=== PATIENT | female | born 1940 | race Caucasian/White ===

== ENCOUNTER 2023-09-25 13:52 | Inpatient (IN) | payer OTHER, SELFPAY ==
[2023-09-25 10:24] VITALS: BP 116/57
--- NOTE | 2023-09-25 10:31 | ED.GENMED ---
History of Present Illness
General
Chief Complaint: Musculo-Skeletal Complaint
Time Seen by Provider: 09/25/23 10:31
Travel History
Have you had any contact with someone who has COVID-19?: No
Do you have any symptoms of coronavirus? Fever > 100 degrees, chills, cough, shortness of breath, sore throat, loss of taste or smell, muscle aches, or headache?: No
History of Present Illness
History of Present Illness:
HPI: The patient came in by private vehicle for evaluation after a fall. The fall occurred at about midnight in the [facility]. She primary complains of pain at the right hip. Her drove her here. She is on Eliquis but adamantly denies
striking her head. She had a small contusion of the right elbow but has no pain at the right elbow.
EXAM:
GENERAL: Well appearing but in mild distress
HEENT: Very dry oral mucosa
CARDIOVASCULAR: No murmurs, normal heart rate with irregular rhythm, No chest wall tenderness
PULMONARY: No respiratory distress, breath sounds are clear and equal
ABDOMEN: Soft with no peritoneal signs, no tenderness
NEUROLOGIC: Excellent strength all extremities, no coordination deficits
PSYCHIATRIC: Appropriate mental status, normal insight and judgement
EXTREMITIES: Markedly decreased active range of motion at the right hip due to pain, there is severe pain with passive range of motion to rotation at the right hip
SKIN: No rash, no lesions
ED COURSE:
10:45 AM: I initially evaluated patient
NUMBER AND COMPLEXITY OF PROBLEMS ADDRESSED AT THE ENCOUNTER
� Chronic conditions affecting care: IDDM, hyperlipidemia, GERD, endometrial cancer, A-fib on Eliquis
� Acute Exacerbation and/or Progression of Chronic Illness: This is an acute problem
� Differential Diagnosis includes: Pelvis fracture, hip fracture, the patient adamantly denies striking her head therefore doubt intracranial hemorrhage
AMOUNT AND/OR COMPLEXITY OF DATA TO BE REVIEWED AND ANALYZED
� I performed an independent evaluation of and my interpretation is:
EKG:
CT: CT imaging confirms femoral neck fracture.
X-rays: I personally viewed x-rays and see signs of a right femoral neck fracture
Laboratory Studies: CBC shows mild anemia but otherwise unremarkable
Other:
� Review of other/old records: I reviewed discharge summary from 2021. The patient had right TKA in 2021 and was also hyponatremic and hypokalemic at that time.
� Clinical information was obtained by an independent historian: None needed
� Prescriptions/Medications Considered but not given:
� Further testing considered but not performed:
RISK OF COMPLICATIONS AND/OR MORBIDITY OR MORTALITY OF PATIENT MANAGEMENT
� Social determinants of health affecting care: Lives at home but injury occurred in the [place]
� Discussion with other providers: I communicated with Dr. Lopez -�will obtain CT imaging for further evaluation. Hospitalist for admission at noon.
� Escalation of care including admission/observation vs risk of discharge considered: Will plan admission to the hospital for hip fracture. Low potassium ordered to be replaced by IV.
Past History
Past History
ED Past Medical History: Arrthythmia (Ventricular tachycardia), Cancer (Endometrial, atrial myxoma), Fibromyalgia, GERD, HTN, Hypercholesterolemia, NIDDM, Psychiatric (Depression, anxiety), Other (DVT in bilateral lower extremities, bilateral lower
extremity lymphedema, pancreatitis) and Other (Pulmonary nodule, rheumatoid arthritis,)
ED Past Surgical History: Cardiac (Atrial myxoma excision), Gynecological (total abdominal hysterectomy) and Orthopedic (Left ankle fusion, left hip fracture status post ORIF, left total knee arthroplasty, right total knee arthroplasty performed
April 2022)
Family History
Family History: Other (reviewed and noncontributory)
Phy Exam
Physical Exam
Physical Exam:
See HPI
Course
Orders/Labs/Results
Orders:
Orders
09/25/23 10:28
Hip, Right 2-3 Views [CR Hip - RT w/wo Pel 2-3 Vw*] Urgent
Comment:
Reason For Exam: fall
Include a pelvis x-ray?: Yes
09/25/23 11:01
CT Pelvis W/o Iv Contrast Urgent
Comment:
Reason For Exam: eval R fem neck fx
09/25/23 11:02
0.9% Sodium Chloride 500 ml [Nss] 500 ml IV BOLUS
09/25/23 11:07
Complete Blood Count/With Diff Urgent
09/25/23 11:13
Morphine Sulfate 2 mg IV NOW STA
Ondansetron Injectable [Zofran] 4 mg IV NOW STA
09/25/23 11:35
CR Femur - Right Min 2 Vw Routine
Comment:
Reason For Exam: Right femoral neck fracture
09/25/23 12:14
Basic Metabolic Panel Urgent
09/25/23 12:38
HYDROmorphone [Dilaudid] 0.5 mg IV NOW STA
09/25/23 12:42
HYDROmorphone [Dilaudid] 0.5 mg IV NOW STA
Abnormal Lab Results
09/25/23 09/25/23
11:07 12:14
RBC 4.08 L 10^6/uL
(4.20-5.40)
Hgb 11.7 L g/dL
(12.0-16.0)
Hct 34.2 L %
(37.0-47.0)
MPV 11.0 H fL
(7.4-10.4)
Abs Immat Gran (auto) 0.1 H 10^3/uL
(0-0.05)
Absolute Lymphs (auto) 0.6 L 10^3/uL
(1.2-3.4)
Immature Gran % 0.8 H %
(0-0.5)
Neutrophils % 82.5 H %
(42.2-75.2)
Lymphocytes % 7.1 L %
(20.5-51.1)
Sodium 134 L mmol/L
(135-145)
Potassium 3.1 L mmol/L
(3.5-5.1)
Creatinine 0.4 L mg/dL
(0.6-1.0)
Glucose 227 H mg/dl
(70-99)
Calcium 8.1 L mg/dl
(8.4-10.2)
09/25/23 11:07
09/25/23 12:14
Vital Signs
Initial and Last Documented VS:
Initial Vital Signs
Temp Pulse Resp BP Pulse Ox
99.1 F 70 16 116/57 98
09/25/23 10:24 09/25/23 10:24 09/25/23 10:24 09/25/23 10:24 09/25/23 10:24
Last Documented Vital Signs
Temp Pulse Resp BP Pulse Ox
99.1 F 64 16 130/71 97
09/25/23 10:24 09/25/23 12:15 09/25/23 12:15 09/25/23 12:15 09/25/23 12:15
*Critical Care Note
Total Time (30-74mins, 75-104mins- exclusive of procedures): Not Applicable
ED Attending Note
-
Portions of this chart may have been created with voice recognition software.� Occasional wrong word or��sound alike� substitutions may have occurred due to the inherent limitations of voice recognition software.
Discharge Plan
Departure
Patient Disposition: Admit
Date of Disposition: 09/25/23
Time of Disposition: 12:38
Presentation/result/management discussed w/ accepting MD/DO: Hospitalist
Discharge Problem:
Closed fracture of neck of right femur
Prescriptions:
No Action
atorvastatin 20 mg Tablet
20 mg PO QPM
insulin glargine [Lantus U-100 Insulin] 100 unit/mL Solution
0 unit SC QPM
Patient Comments:
09/25/2023: Up to [address] First
sertraline 100 mg Tablet
100 mg PO DAILY
omeprazole 20 mg Capsule,Delayed Release(Dr/Ec)
20 mg PO DAILY
metoprolol succinate 25 mg Tablet Extended Release 24 Hr
25 mg PO QPM
insulin aspart U-100 [Novolog FlexPen U-100 Insulin] 100 unit/mL (3 mL) Insulin Pen
0 sliding scale dose SC AC
Creon 36,000-114,000- 180,000 unit Capsule,Delayed Release(Dr/Ec)
1 cap PO BID
multivitamin Tablet
1 tab PO DAILY
cholecalciferol (vitamin D3) [Vitamin D3] 125 mcg (5,000 unit) Tablet
125 mcg PO DAILY
Probiotic 3 billion cell Capsule
3,000 mmu cells PO DAILY
Rx Instructions:
administer with a meal
PreserVision AREDS-2 250-90-40-1 mg Capsule
1 tab PO BID
Eliquis 5 mg Tablet
5 mg PO BID 30 Days Qty: 60 0RF
alendronate 70 mg tablet
70 mg PO WEEKLY
prednisone 5 mg tablet
15 mg PO DAILY
hydroxychloroquine 200 mg tablet
200 mg PO BID
Referrals:
César Varghese DO [Family Provider] -
Interventions
Interventions:
*Risk Screen - Suicide Last Done: 09/25/23 10:24
*General Assessment Last Done: 09/25/23 10:24
*Neglect/Abuse Screening Last Done: 09/25/23 10:24
ED-Musculoskeletal Assessment Last Done: 09/25/23 11:08
[2023-09-25 11:07] VITALS: BMI 23.9
[2023-09-25] MEDS: NSS 500 IV (11:17)
[2023-09-25] MEDS: MORPHINE SULFATE 2 MG IV (11:20)
[2023-09-25] MEDS: ZOFRAN 4 MG IV (11:21)
[2023-09-25 11:24] LABS: % Basophils 0.4 % (0-2); % Eosinophils 1.7 % (0-6); % Immature Granulocytes 0.8 % (0-0.5); % Lymphocytes 7.1 % (20.5-51.1); % Monocytes 7.5 % (1.7-9.3); % Neutrophils 82.5 % (42.2-75.2); Absolute Eosinophils 0.1 10^3/uL (0-0.7); Absolute Immature Granulocytes 0.1 10^3/uL (0-0.05); Absolute Lymphocytes 0.6 10^3/uL (1.2-3.4); Absolute Monocytes 0.6 10^3/uL (0.1-0.6); Absolute Neutrophils 6.4 10^3/uL (1.4-6.5); Hematocrit 34.2 % (37.0-47.0); Hemoglobin 11.7 g/dL (12.0-16.0); Mean Corp Hgb Conc. 34.2 g/dL (33.0-37.0); Mean Corpuscular Hgb 28.7 pg (27.0-31.0); Mean Corpuscular Volume 83.8 fL (81.0-99.0); Nucleated Red Blood Cells % 0 %; Platelet Count 151 10^3/uL (130-400); Red Blood Cell Count 4.08 10^6/uL (4.20-5.40); Red Cell Dist. Width 13.5 % (11.5-14.5); White Blood Cell Count 7.8 10^3/uL (4.8-10.8)
[2023-09-25 12:15] VITALS: BP 130/71
[2023-09-25 12:40] LABS: Blood Urea Nitrogen 12 mg/dl (7-17); Calcium 8.1 mg/dl (8.4-10.2); Carbon Dioxide 25 mmol/L (22-30); Chloride 105 mmol/L (98-107); Estimated Creatinine Clearance 57 ml/min; Glucose 227 mg/dl (70-99); Potassium 3.1 mmol/L (3.5-5.1); Sodium 134 mmol/L (135-145); eGFR > 60.00
[2023-09-25] MEDS: DILAUDID 0.5 MG IV (12:46)
--- NOTE | 2023-09-25 13:32 | PHANOTE ---
Med Rec Note:
Insulins left unconfirmed due to unknown dosages. At time of interview it was hard to get information from of pt due to pt receiving Dilaudid, pt was rambling.
--- NOTE | 2023-09-25 13:37 | HPS.HSE ---
Addendum entered and electronically signed by Omid Gamboa MD 09/25/23 16:08:
83-year-old female with past medical history of atrial myxoma status post resection, paroxysmal atrial fibrillation on Eliquis, hypertension, hyperlipidemia, and diabetes presents with right hip pain status post fall. Patient reports that she
slipped, and fell at her friend's house after midnight. She was found to have impacted fracture of the femoral neck into the head of the proximal right femur.
Consult orthopedic surgery, pain control, laxatives.
Hold Eliquis, last dose was 09/25/2023 at 7 AM.
Patient's perioperative risk is low, she can proceed to surgery if indicated by orthopedic surgery.
I have personally seen and examined the patient, and agree with the plan of care as documented by Corine Salazar NP.
Advance care planning discussed, patient is a full code.
All other issues as outlined by the advanced care practitioner.
Original Note:
Family Physician
-
Family Physician: César Varghese
Chief Complaint
-
s/p fall, R femur fx
History of Present Illness
83 year old female came to the ED today after a mechanical fall.� The fall occurred at about midnight in the [facility].� She primary complains of pain at the right hip and states she fell because the floor was slippery.� She is on Eliquis, last dose
taken this morning. She denies hitting her head, denies LOC.� X-ray and CT confirm right femur fracture. She is a patient of Dr. Null and will plan to do surgery on Wednesday after Eliquis washout.
Medical History
Past Medical History
Past Medical History: Reports Arrhythmia, Cancer, Fibromyalgia, GERD, HTN, Hypercholesterolemia, IDDM, Psychiatric (Depression) and Other (DVT in bilateral lower extremities, bilateral lower extremity lymphedema, pancreatitis)
Past Surgical History: Reports Cardiac (Atrial myxoma excision), Gynocological (total abdominal hysterectomy) and Orthopedic (Left ankle fusion, left hip fracture status post ORIF, left total knee arthroplasty, right total knee arthroplasty
performed April 2022)
Social History
Tobacco: Non-smoker
Alcohol: None
Drug: None
Living: With Family
Family History
Family History: Not pertinent
Allergies / Home Medications
Allergies reflects when Allergies were last updated in [facility].
Home Medications with original date entered in [facility]
Allergy/Medication List:
Allergies
Allergy/AdvReac Type Severity Reaction Status Date / Time
No Known Allergies Allergy Verified 09/25/23 10:24
Home Medications
atorvastatin 20 mg tablet 20 mg PO QPM High cholesterol 04/02/22
cholecalciferol (vitamin D3) 125 mcg (5,000 unit) tablet (Vitamin D3) 125 mcg PO DAILY Supplement 04/02/22
insulin aspart U-100 100 unit/mL (3 mL) subcutaneous pen (Novolog FlexPen U-100 Insulin aspart) 0 sliding scale dose SC AC Diabetes 04/02/22
insulin glargine 100 unit/mL subcutaneous solution (Lantus U-100 Insulin) 0 unit SC QPM Diabetes 04/02/22
lactobacillus combination no.4 3 billion cell capsule (Probiotic) 3,000 mmu cells PO DAILY Gastrointestinal issue 04/02/22
lcoiqf-emoeohjy-etfqovu 36,000-114,000-180,000 unit capsule,delay rel (Creon) 1 cap PO BID Gastrointestinal issue 04/02/22
metoprolol succinate 25 mg tablet,extended release 24 hr 25 mg PO QPM Blood pressure 04/02/22
multivitamin 1 tab PO DAILY Supplement 04/02/22
omeprazole 20 mg capsule,delayed release 20 mg PO DAILY Gastrointestinal issue 04/02/22
sertraline 100 mg tablet 100 mg PO DAILY Mental Health 04/02/22
vit C 250 mg-vit E 90 mg-zinc 40 mg-copper 1 nx-asklhp-aszrcl capsule (PreserVision AREDS-2) 1 tab PO BID Supplement 04/02/22
apixaban 5 mg tablet (Eliquis) 5 mg PO BID 30 days #60 tabs 05/06/22
alendronate 70 mg tablet 70 mg PO WEEKLY 09/25/23
hydroxychloroquine 200 mg tablet 200 mg PO BID 09/25/23
prednisone 5 mg tablet 15 mg PO DAILY 09/25/23
Review of Systems
-
History Source: Patient
A 12 point ROS was completed and negative except as noted: Yes
Constitutional: Reports No Symptoms
EENT: Reports No Symptoms
Respiratory: Reports No Symptoms
Cardiac: Reports No Symptoms
Abdomen/GI: Reports No Symptoms
: Reports No Symptoms
Musculoskeletal: Reports Edema (b/l LE) and Other (R hip pain)
Skin: Reports No Symptoms
Neurological: Reports No Symptoms
Endocrine: Reports No Symptoms
Hematologic/Lymphatic: Reports No Symptoms
Physical Exam
Vital Signs
Vital Signs
Temp Pulse Resp BP Pulse Ox
99.1 F 64 16 130/71 97
09/25/23 10:24 09/25/23 12:15 09/25/23 12:15 09/25/23 12:15 09/25/23 12:15
Physical Exam
General: Well Developed and Comfortable
HEENT: NormoCephalic, Anicteric and Moist mucous membranes
Respiratory: Clear
Cardiac: Irregular Rhythm
Breast: Deferred by me
GI: Soft, Non Tender, Non Distended and Normal Bowel Sounds
Genito-urinary: Deferred by me
Musculoskeletal: Edema, Left Lower Extremity and Edema, Right Lower Extremity
Skin: Warm and Dry
Neuro: Awake, Alert, Oriented and AO x 3
Psych: Calm
Laboratory Results
-
09/25/23 11:07
09/25/23 12:14
Impression/Plan
-
IMPRESSION/PLAN:
Admit to telemetry under Hospitalist service
#Closed fracture of neck of right femur
#Pain
#s/p mechanical fall
-X-ray and CT show impacted fracture of the neck extending into the head of the proximal left femur
-Ortho consult, sees Dr. Null, plan for surgery on Wednesday after Eliquis washout
-Tylenol and oxycodone for pain
-PT/OT consult after surgery
#Afib
-Hold Eliquis for now while awaiting surgery
-SQH
-Telemetry
-Continue metoprolol
#Essential Hypertension
-Continue metoprolol
#HLD
-Continue Atorvastatin
#Hypokalemia
-Replete potassium and recheck BMP with am labs
-check Magnesium
#IDDM
-SSI
#Anxiety/Depression
-Continue Sertraline
Full Code
DVT Prophylaxis: SQH
[2023-09-25 14:06] LABS: Magnesium 1.6 mg/dl (1.6-2.3)
[2023-09-25] MEDS: KCL 40 MEQ PO (14:17)
[2023-09-25] MEDS: TYLENOL 1000 MG PO ×2 (14:17→22:54)
--- NOTE | 2023-09-25 14:21 | EDRN ---
PO Potassium given. Pharmacy aware of K+ IV gtt order.
[2023-09-25] MEDS: KCL 270 MEQ IV (14:39)
[2023-09-25 15:08] VITALS: BP 116/72; BMI 24.3
--- NOTE | 2023-09-25 15:31 | PTCARENOTE ---
Pt received from ER at 1500. Pt AAOx3 with R hip fracture, complaining of 3/10 pain to hip. Pt A paced on monitor, dim @ bases on RA. VSS. see worklist
[2023-09-25 16:46] LABS: Glucose - Point of Care 148 mg/dl (70-99)
[2023-09-25] MEDS: NOVOLOG FLEXPEN-LOW RESISTANCE SC (16:46)
[2023-09-25] MEDS: TOPROL XL 25 MG PO (17:12)
[2023-09-25] MEDS: LIPITOR 20 MG PO (17:12)
[2023-09-25 19:40] VITALS: BP 115/64
[2023-09-25] MEDS: OCUVITE SOFTGEL 1 CAP PO (21:10)
[2023-09-25] MEDS: HEPARIN 5000 UNITS SC (21:10)
[2023-09-25] MEDS: PLAQUENIL 200 MG PO (21:10)
[2023-09-25] MEDS: ZENPEP DELAYED RELEASE CAPSULE 1 CAPSULE PO (21:10)
[2023-09-25] MEDS: ROXICODONE 10 MG PO (21:10)
[2023-09-25 21:52] LABS: Glucose - Point of Care 223 mg/dl (70-99)
[2023-09-25 23:51] VITALS: BP 123/59
[2023-09-26] MEDS: ROXICODONE 5 MG PO ×2 (00:24→22:14)
[2023-09-26 03:48] VITALS: BP 135/66
[2023-09-26] MEDS: ROXICODONE 10 MG PO (06:33)
[2023-09-26 06:58] LABS: Glucose - Point of Care 141 mg/dl (70-99)
[2023-09-26 07:00] VITALS: BP 116/52
[2023-09-26 07:21] LABS: Hematocrit 38.3 % (37.0-47.0); Hemoglobin 12.7 g/dL (12.0-16.0); Mean Corp Hgb Conc. 33.2 g/dL (33.0-37.0); Mean Corpuscular Hgb 28.9 pg (27.0-31.0); Mean Corpuscular Volume 87.2 fL (81.0-99.0); Mean Platelet Volume 10.7 fL (7.4-10.4); Platelet Count 113 10^3/uL (130-400); Red Blood Cell Count 4.39 10^6/uL (4.20-5.40); Red Cell Dist. Width 13.7 % (11.5-14.5); White Blood Cell Count 5.6 10^3/uL (4.8-10.8)
[2023-09-26 08:08] LABS: Blood Urea Nitrogen 5 mg/dl (7-17); Calcium 7.9 mg/dl (8.4-10.2); Carbon Dioxide 30 mmol/L (22-30); Chloride 105 mmol/L (98-107); Estimated Creatinine Clearance 57 ml/min; Glucose 108 mg/dl (70-99); Magnesium 1.7 mg/dl (1.6-2.3); Potassium 4.2 mmol/L (3.5-5.1); Sodium 133 mmol/L (135-145); eGFR > 60.00
[2023-09-26] MEDS: NOVOLOG FLEXPEN-LOW RESISTANCE SC (08:21)
[2023-09-26 08:33] LABS: Glycohemoglobin (HgbA1c) 11.2 % (4.0-5.6)
--- NOTE | 2023-09-26 08:43 | W.PN.HOSP.TC ---
Today's Communication/Plan
-
see bold
Assessment / Plan
Assessment / Plan
83-year-old female with past medical history of atrial myxoma status post resection, paroxysmal atrial fibrillation on Eliquis, hypertension, hyperlipidemia, and diabetes presents with right hip pain status post fall.� Patient reports that she
slipped, and fell at her friend's house after midnight.� She was found to have impacted fracture of the femoral neck into the head of the proximal right femur.
#Closed impacted fracture of right femoral neck
#Mechanical fall
Sees Dr. Null
Appreciate orthopedic surgery input, plan for surgery on Wednesday after Eliquis washout (last dose 7am on 09/25)
Tylenol and oxycodone for pain, bowel regimen
PT/OT consult after surgery
#Fever
Patient febrile with temp of 100.4
No leukocytosis
Check lower extremity Dopplers to evaluate for DVT
Check chest x-ray, urine analysis, influenza/COVID, blood cultures x 2
#Uncontrolled type 2 diabetes
Patient does not know her insulin dosages
Hemoglobin A1c uncontrolled at 11.2, she admits to not being compliant with diet
Start NovoLog 4 units AC 3 times daily, Lantus 10 units at bedtime
Sliding scale insulin, diabetic diet
# Paroxysmal atrial fibrillation
Holding Eliquis for surgery
Continue metoprolol
#Hypokalemia
Repleted and resolved, Mg normal
#Rheumatoid arthritis
Continue hydroxychloroquine, prednisone 50 mg daily
#HLD
Continue Atorvastatin
#Anxiety/Depression
Continue Sertraline
DVT prophylaxis�subcu heparin (hold 2/7 am for surg)
Full code
Total time spent to see the patient on the floor, examine the patient, review data and lab results, discuss treatment plan with patient, nursing staff around 51 minutes.
Physical Exam
General: Frail, elderly, no acute distress
HEENT: Normocephalic, Atraumatic, EOMI, MMM
Respiratory: Clear to Auscultation bilaterally
Cardiac: Normal S1/S2, Regular Rate and Rhythm
GI: Soft, Nontender, Nondistended, Normal Bowel Sounds
Musculoskeletal: Right leg mildly shortened and externally rotated
Anticipated Discharge: > 48 hours
Subjective/Interval History
-
Date of Service: September 26, 2023
Right hip pain controlled.
Objective Data
-
Labs:
Laboratory Results
09/26/23
06:45
WBC 5.6
Hgb 12.7
Hct 38.3
Plt Count 113 L D
Sodium 133 L
Potassium 4.2 D
Chloride 105
Carbon Dioxide 30
BUN 5 L
Creatinine 0.4 L
Glucose 108 H
Calcium 7.9 L
Vital Signs:
Vital Signs
Temp Pulse Resp BP Pulse Ox
98.8 F 61 16 116/52 94
09/26/23 07:00 09/26/23 07:00 09/26/23 07:00 09/26/23 07:00 09/26/23 07:00
I&O
09/25/23 09/26/23 09/27/23
06:59 06:59 06:59
Intake Total 1200 / 1200
Output Total 700 / 700
Balance 500 / 500
--- NOTE | 2023-09-26 09:47 | CON.ORTHO ---
Consultation
-
Date/Time Consultation Requested: 09/25/2023; time unknown
Date/Time Consultation Performed: 09/26/2023; 0730
Requesting Provider: unknown
Performing Provider: Dr. Hafsa Lopez / Jo Ann Florez PA-C
Reason for Consultation: Right femoral neck fracture
Consultation - Orthopedics
History
Ms. Marrero is an 83 year old female with PMH of atrial myxoma status post resection, paroxysmal atrial fibrillation on Eliquis, hypertension, hyperlipidemia, and diabetes. She reports she got up in the middle of the night yesterday to use the
bathroom and fell onto her right side. She experienced immediate onset of pain in the hip, but was able to get up with the assistance of her . She was visiting a friend in the [facility], and when her symptoms did not improve, her drove
her directly to [facility]. X-rays and CT scan confirmed right femoral neck fracture. She is resting comfortably in bed this morning, and states her pain is well controlled at present. She does report ongoing pain in her right hip for the
last few months.
She lives independently with her . She ambulates with the assistance of a cane or walker at baseline. She denies PMH of DVT, CVA or UT. She has a history of bilateral knee replacements performed by Dr. Null.
Allergies / Home Medications
Allergy/AdvReac Type Severity Reaction Status Date / Time
No Known Allergies Allergy Verified 09/25/23 10:24
Medication Instructions Recorded
atorvastatin 20 mg tablet 20 mg PO QPM High cholesterol 04/02/22
cholecalciferol (vitamin D3) 125 125 mcg PO DAILY Supplement 04/02/22
mcg (5,000 unit) tablet (Vitamin
D3)
insulin aspart U-100 100 unit/mL 0 sliding scale dose SC AC Diabetes 04/02/22
(3 mL) subcutaneous pen (Novolog
FlexPen U-100 Insulin aspart)
insulin glargine 100 unit/mL 0 unit SC QPM Diabetes 04/02/22
subcutaneous solution (Lantus
U-100 Insulin)
lactobacillus combination no.4 3 3,000 mmu cells PO DAILY 04/02/22
billion cell capsule (Probiotic) Gastrointestinal issue
rzzsep-ipqzqwkm-xhrywav 1 cap PO BID Gastrointestinal issue 04/02/22
36,000-114,000-180,000 unit
capsule,delay rel (Creon)
metoprolol succinate 25 mg 25 mg PO QPM Blood pressure 04/02/22
tablet,extended release 24 hr
multivitamin 1 tab PO DAILY Supplement 04/02/22
omeprazole 20 mg capsule,delayed 20 mg PO DAILY Gastrointestinal 04/02/22
release issue
sertraline 100 mg tablet 100 mg PO DAILY Mental Health 04/02/22
vit C 250 mg-vit E 90 mg-zinc 40 1 tab PO BID Supplement 04/02/22
mg-copper 1 cr-hwadgd-eqrtzb
capsule (PreserVision AREDS-2)
apixaban 5 mg tablet (Eliquis) 5 mg PO BID 30 days #60 tabs 05/06/22
alendronate 70 mg tablet 70 mg PO WEEKLY 09/25/23
hydroxychloroquine 200 mg tablet 200 mg PO BID 09/25/23
prednisone 5 mg tablet 15 mg PO DAILY 09/25/23
Vital Signs / Lab Results
Temp Pulse Resp BP Pulse Ox
98.8 F 61 16 116/52 94
09/26/23 07:00 09/26/23 07:00 09/26/23 07:00 09/26/23 07:00 09/26/23 07:00
09/26/23 06:45
09/26/23 06:45
CR Right Hip 09/25/2023 IMPRESSION:
Findings suspicious for fracture, neck, proximal right femur.
Old healed fracture of the proximal left femur with internal metallic fixation.
CR Femur 09/25/2023 IMPRESSION:
Known fracture, neck, proximal right femur.
No additional right femoral fracture seen.
Right knee arthroplasty.
CT Pelvis 09/25/2023 IMPRESSION:
Impacted fracture of the neck extending into the head of the proximal left femur.
Old healed fracture with internal metallic fixation of the proximal left femur.
Physical Exam:
General: Pleasant female in no acute distress, alert and oriented x 3
Head: Atraumatic, normocephalic
Eyes: Sclera anicteric
Ears: Normal hearing
Heart: No edema
Lungs: Normal work of breathing, no audible wheezing
Right lower extremity: No signs of erythema, ecchymosis or edema about the right hip. Very mild tenderness to palpation about the anterior hip. Only mild tenderness with logroll. Range of motion deferred secondary to known fracture. Thigh soft
and compressible. Calf soft and nontender. Patient able to wiggle toes, plantar and dorsiflex ankle. Neurovascular intact distally.
Assessment / Plan
Right femoral neck fracture
--Unfortunately, Lala sustained a right femoral neck fracture in her fall. We recommend proceeding with surgical intervention of her fracture. The risks, benefits, alternatives, recovery process and potential complications were discussed in
detail. Patient would like to proceed with surgery. Surgical and blood consents are signed and in the patient's chart. We will plan to proceed with right hip hemiarthroplasty versus total hip arthroplasty under the direction of Dr. Null on
Wednesday (09/29/2023) after Eliquis washout.
--NWB to RLE until surgery.
--NPO after midnight 09/29/2023 for OR.
--Continue current pain management regimen. Ice and elevation for edema control.
--T+S within 72 hours of surgery.
--Irrigation and antibiotics ordered to OR.
--Orthopedics will continue to follow along.
[2023-09-26] MEDS: TYLENOL 1000 MG PO ×3 (09:54→22:15)
[2023-09-26] MEDS: ZENPEP DELAYED RELEASE CAPSULE 1 CAPSULE PO ×2 (09:54→20:08)
[2023-09-26] MEDS: DELTASONE 15 MG PO (09:54)
[2023-09-26] MEDS: MIRALAX 17 GRAMS PO (09:54)
[2023-09-26] MEDS: PLAQUENIL 200 MG PO ×2 (09:54→20:08)
[2023-09-26] MEDS: OCUVITE SOFTGEL 1 CAP PO ×2 (09:54→20:08)
[2023-09-26] MEDS: ZOLOFT 100 MG PO (09:54)
[2023-09-26] MEDS: HEPARIN 5000 UNITS SC ×2 (09:55→20:08)
--- NOTE | 2023-09-26 10:26 | W.PN.UPDATE ---
Update Note
Progress Note Update
Patient seen and examined. Agree with orthopedic PA note.
Upon further questioning of patient. She did say she was having approximately 2 months of hip pain prior to her fall 2 days ago. She we are waiting for her Eliquis to washout. She is comfortable laying in the bed with only mild discomfort with
range of motion of the hip with log roll.
Right lower extremity: Mild tenderness with logroll and range of motion. Patient is comfortable in her bed. Complete active range of motion of the ankle. Neurovascularly intact.
X-rays performed of the right femur AP and lateral and AP of the pelvis and AP and lateral of right hip show a displaced right femoral neck fracture. CT scan of the pelvis shows minimally displaced and significantly impacted right femoral neck
fracture. Unknown chronicity
Impression: Right femoral neck fracture
Plan: Nonoperative and operative approaches of this were discussed. I read commend operative fixation of this fracture. However, with the impaction, mild displacement, and question as to chronicity, I recommend right hip hemiarthroplasty for
definitive treatment of this fracture. Unfortunately, cannulated screw fixation for this fracture may likely lead to nonunion, continued pain, and/or leg length discrepancy that she may not be able to tolerate moving forward. Her history suggests
that she may have had a stress fracture that Made her leg give way creating that fall as she was vacationing in [facility]. We are waiting the Eliquis to washout. She Is scheduled to have her surgery performed by Dr. Loaiza on Wednesday. She is to
be n.p.o. past midnight on Wednesday night. She is to be on bedrest. All questions were answered.
[2023-09-26 11:15] VITALS: BP 118/60
--- NOTE | 2023-09-26 12:16 | CM ---
Spoke with patient and daughter bedside.
DX fx hip
Patient lives with spouse in a rancher style home, no steps
patient independent prior to admission.
Patient has WC and cane in the home from prior knee/hip sx.
Patient had vn in the past, maybe [facility].
Patient was in the [facility] before and would like referral there.
Additional options list provided to daughter.
Referral [email or web address].
patient for OR later week.
PT/OT pending post op.
Patient will require insurance auth.
PCP: Dr Varghese
Pharmacy: [facility]
Plan: Skilled rehab when medically stable.
[2023-09-26 12:47] LABS: Glucose - Point of Care 228 mg/dl (70-99)
[2023-09-26] MEDS: NOVOLOG FLEXPEN-LOW RESISTANCE 2 UNITS SC (13:48)
[2023-09-26 15:36] VITALS: BP 118/55
[2023-09-26 16:40] LABS: Glucose - Point of Care 401 mg/dl (70-99)
[2023-09-26 16:41] LABS: Glucose - Point of Care 417 mg/dl (70-99)
[2023-09-26 16:53] LABS: COVID-19 Antigen Negative (Negative)
[2023-09-26] MEDS: LIPITOR 20 MG PO (16:59)
[2023-09-26 17:45] LABS: Glucose 376 mg/dl (70-99)
[2023-09-26] MEDS: NOVOLOG FLEXPEN 4 UNITS SC (17:56)
[2023-09-26] MEDS: NOVOLOG FLEXPEN-LOW RESISTANCE 5 UNITS SC (17:57)
[2023-09-26] MEDS: TOPROL XL 25 MG PO (17:58)
[2023-09-26 19:13] VITALS: BP 121/64
[2023-09-26 22:07] LABS: Glucose - Point of Care 384 mg/dl (70-99)
[2023-09-26] MEDS: LANTUS 0.100000000000000006 UNITS SC (22:15)
[2023-09-26 22:50] LABS: Urine Albumin Negative (Neg - Trace); Urine Bilirubin Negative (Negative); Urine Character Slightly Cloudy (Clear); Urine Color Yellow; Urine Glucose 3+ (Negative); Urine Ketone 1+ (Negative); Urine Leukocyte Negative (Negative); Urine Nitrite Negative (Negative); Urine Occult Blood Negative (Negative); Urine Specific Gravity 1.015 (<1.030); Urine Urobilinogen Negative (Neg - 1+)
[2023-09-26 23:59] VITALS: BP 131/60
--- NOTE | 2023-09-27 02:17 | PTCARENOTE ---
Patient was given a laxative has moved her bowels 4 times since 1899.
[2023-09-27 03:33] VITALS: BP 125/62
[2023-09-27 07:33] LABS: Glucose - Point of Care 317 mg/dl (70-99)
[2023-09-27 07:55] VITALS: BP 145/67
[2023-09-27] MEDS: TYLENOL 1000 MG PO ×3 (08:03→21:47)
[2023-09-27] MEDS: MIRALAX 17 GRAMS PO (08:03)
[2023-09-27] MEDS: HEPARIN 5000 UNITS SC ×2 (08:04→20:12)
[2023-09-27] MEDS: ZOLOFT 100 MG PO (08:04)
[2023-09-27] MEDS: DELTASONE 15 MG PO (08:04)
[2023-09-27] MEDS: PLAQUENIL 200 MG PO ×2 (08:04→20:12)
[2023-09-27] MEDS: ZENPEP DELAYED RELEASE CAPSULE 1 CAPSULE PO ×2 (08:05→20:14)
[2023-09-27] MEDS: OCUVITE SOFTGEL 1 CAP PO ×2 (08:05→20:12)
[2023-09-27] MEDS: NOVOLOG FLEXPEN-LOW RESISTANCE 4 UNITS SC ×2 (08:06→18:03)
[2023-09-27] MEDS: NOVOLOG FLEXPEN 4 UNITS SC ×3 (08:06→18:03)
[2023-09-27 08:09] LABS: Mean Corp Hgb Conc. 33.3 g/dL (33.0-37.0); Mean Corpuscular Hgb 28.7 pg (27.0-31.0); Mean Corpuscular Volume 86.2 fL (81.0-99.0); Mean Platelet Volume 10.8 fL (7.4-10.4); Platelet Count 117 10^3/uL (130-400); Red Blood Cell Count 3.83 10^6/uL (4.20-5.40); Red Cell Dist. Width 13.7 % (11.5-14.5); White Blood Cell Count 6.3 10^3/uL (4.8-10.8)
[2023-09-27 08:41] LABS: Blood Urea Nitrogen 10 mg/dl (7-17); Calcium 7.7 mg/dl (8.4-10.2); Carbon Dioxide 30 mmol/L (22-30); Chloride 99 mmol/L (98-107); Estimated Creatinine Clearance 57 ml/min; Glucose 267 mg/dl (70-99); Potassium 3.7 mmol/L (3.5-5.1); Sodium 134 mmol/L (135-145); eGFR > 60.00
--- NOTE | 2023-09-27 09:09 | W.PN.UPDATE ---
Update Note
Progress Note Update
Patient comfortable in bed. Afeb. We continue to await Elisarbjit gross. plan for OR is Wednesday via Dr. Null. T&S placed. Remainder of orders in. Patient to be NPO pMN tomorrow PM. Remain bedrest for now. Will follow
--- NOTE | 2023-09-27 11:09 | W.PN.HOSP.TC ---
Today's Communication/Plan
-
At this point seems to be doing better she is now afebrile x 24 hours hope that continues
Basilar pneumonic infiltrate questionable/will defer antibiotic unless procalcitonin significant elevated
May be either viral versus reactive fever
Exam benign
Will clear officially tomorrow for presumptive right hip hemiarthroplasty for impacted hip fracture
Assessment / Plan
Assessment / Plan
83-year-old female with past medical history of atrial myxoma status post resection, paroxysmal atrial fibrillation on Eliquis, hypertension, hyperlipidemia, and diabetes presents with right hip pain status post fall.� Patient reports that she
slipped, and fell at her friend's house after midnight.� She was found to have impacted fracture of the femoral neck into the head of the proximal right femur.
#Closed impacted fracture of right femoral neck
#Mechanical fall
Sees Dr. Null
Appreciate orthopedic surgery input, plan for surgery on Wednesday after Eliquis washout (last dose 7am on 09/25)
Tylenol and oxycodone for pain, bowel regimen
PT/OT consult after surgery
#Fever
Patient febrile with temp of 100.4/no afebrile x 24 hours
-Chest x-ray did show questionable basilar infiltrate right/
-Will check procalcitonin today if normal would not place on antibiotic
No leukocytosis
Check lower extremity Dopplers to evaluate for DVT was negative for thrombus
, urine analysis no signs of infection, influenza/COVID both negative, blood cultures x 2(no growth to date)
#Uncontrolled type 2 diabetes
Patient does not know her insulin dosages
Hemoglobin A1c uncontrolled at 11.2, she admits to not being compliant with diet
Start NovoLog 4 units AC 3 times daily, Lantus 10 units at bedtime
Sliding scale insulin, diabetic diet
# Paroxysmal atrial fibrillation
Holding Eliquis for surgery
Continue metoprolol
#Hypokalemia
Repleted and resolved, Mg normal
#Rheumatoid arthritis
Continue hydroxychloroquine, prednisone 50 mg daily
#HLD
Continue Atorvastatin
#Anxiety/Depression
Continue Sertraline
DVT prophylaxis�subcu heparin (hold 2/7 am for surg)
Full code
Total time spent to see the patient on the floor, examine the patient, review data and lab results, discuss treatment plan with patient, nursing staff around 51 minutes.
Physical Exam
General: Frail, elderly, no acute distress
HEENT: Normocephalic, Atraumatic, EOMI, MMM
Respiratory: Clear to Auscultation bilaterally
Cardiac: Normal S1/S2, Regular Rate and Rhythm
GI: Soft, Nontender, Nondistended, Normal Bowel Sounds
Musculoskeletal: Right leg mildly shortened and externally rotated
Anticipated Discharge: 24 - 48 hours
Subjective/Interval History
-
Date of Service: September 27, 2023
Only some minor upper respiratory congestion mild nonproductive cough last several days denies shortness of breath
Persisting pain referred to the hip and groin
Objective Data
-
Labs:
Laboratory Results
09/27/23
07:14
WBC 6.3
Hgb 11.0 L
Hct 33.0 L
Plt Count 117 L
Sodium 134 L
Potassium 3.7
Chloride 99
Carbon Dioxide 30
BUN 10
Creatinine 0.4 L
Glucose 267 H
Calcium 7.7 L
Vital Signs:
Vital Signs
Temp Pulse Resp BP Pulse Ox
98.4 F 70 16 145/67 95
09/27/23 07:55 09/27/23 07:55 09/27/23 07:55 09/27/23 07:55 09/27/23 07:55
I&O
09/26/23 09/27/23 09/28/23
06:59 06:59 06:59
Intake Total 1200 / 1200 1140 / 1140
Output Total 700 / 700 1500 / 1500
Balance 500 / 500 -360 / -360
Review of Systems
-
History Source: Patient
All other systems: Reviewed and negative
Constitutional: Reports No Symptoms
EENT: Reports No Symptoms Reported
Respiratory: Reports No Symptoms
Cardiac: Reports No Symptoms
Abdomen/GI: Reports No Symptoms
Skin: Reports No Symptoms
Physical Exam
-
General: Well Developed
HEENT: Normocephalic
Respiratory: Clear to Auscultation
Cardiac: Regular Rhythm (Paced) and Other (Pacer pocket left)
Genito-urinary: No Costovertebral Tender
Musculoskeletal: No Clubbing
Psych: Calm
Data Reviewed
-
Total Time Spent with Patient (in minutes): 45
Diagnostic Radiology: Report Reviewed by me (Chest x-ray showed mild hazy basilar infiltrate)
Labs: Labs Reviewed by me (No leukocytosis/urinalysis unremarkable/COVID and influenza negative/)
[2023-09-27 11:47] LABS: Glucose - Point of Care 160 mg/dl (70-99)
[2023-09-27 11:55] VITALS: BP 101/49
[2023-09-27 12:50] LABS: Procalcitonin < 0.05 ng/ml (0.0-0.25)
[2023-09-27] MEDS: NOVOLOG FLEXPEN-LOW RESISTANCE 1 UNITS SC (13:25)
[2023-09-27 15:55] VITALS: BP 120/53
--- NOTE | 2023-09-27 16:44 | CM ---
Possible surgery tomorrow, watch for SNF need; pending functional assessments follow surgery. Patient family asked about [facility] if needed. CM will continue to follow for discharge planning needs.
Plan; SNF vs home with VN; watch for pt/ot recommendations follow surgery
[2023-09-27 16:49] LABS: Glucose - Point of Care 413 mg/dl (70-99)
[2023-09-27 17:36] LABS: Glucose 341 mg/dl (70-99)
[2023-09-27] MEDS: LIPITOR 20 MG PO (18:04)
[2023-09-27] MEDS: TOPROL XL 25 MG PO (18:04)
[2023-09-27 19:28] VITALS: BP 130/65
[2023-09-27 21:44] LABS: Glucose - Point of Care 309 mg/dl (70-99)
[2023-09-27] MEDS: LANTUS 0.149999999999999994 UNITS SC (21:47)
[2023-09-27 23:00] VITALS: BP 128/63
--- NOTE | 2023-09-28 05:52 | W.PN.UPDATE ---
Update Note
Progress Note Update
Patient seen and evaluated by orthopedic surgery this morning. Patient is resting comfortably in bed, in no acute distress. Afebrile. We will continue to await Gia gross. Plan for OR Wednesday09/29/2023 under the direction of Dr. Null as
long as medically cleared. T&S completed. Pre-operative orders placed. Consent form in patient's chart. Patient to be NPO pMN tonight. Remain bedrest for now. Orthopedic surgery will continue to follow.
[2023-09-28 07:30] VITALS: BP 108/73
[2023-09-28 07:39] LABS: Glucose - Point of Care 106 mg/dl (70-99)
[2023-09-28 07:59] LABS: Hematocrit 34.2 % (37.0-47.0); Hemoglobin 11.3 g/dL (12.0-16.0); Mean Corpuscular Hgb 28.5 pg (27.0-31.0); Mean Corpuscular Volume 86.4 fL (81.0-99.0); Platelet Count 146 10^3/uL (130-400); Red Blood Cell Count 3.96 10^6/uL (4.20-5.40); Red Cell Dist. Width 13.6 % (11.5-14.5); White Blood Cell Count 6.2 10^3/uL (4.8-10.8)
[2023-09-28] MEDS: NOVOLOG FLEXPEN-MODERATE RESISTANCE SC (08:10)
[2023-09-28] MEDS: NOVOLOG FLEXPEN 6 UNITS SC ×3 (08:33→18:20)
[2023-09-28] MEDS: DELTASONE 15 MG PO (08:34)
[2023-09-28] MEDS: MIRALAX 17 GRAMS PO (08:34)
[2023-09-28] MEDS: PLAQUENIL 200 MG PO ×2 (08:34→19:47)
[2023-09-28] MEDS: TYLENOL 1000 MG PO ×3 (08:34→21:36)
[2023-09-28] MEDS: OCUVITE SOFTGEL 1 CAP PO ×2 (08:35→19:47)
[2023-09-28] MEDS: ZOLOFT 100 MG PO (08:37)
[2023-09-28] MEDS: ZENPEP DELAYED RELEASE CAPSULE 1 CAPSULE PO ×2 (08:37→19:50)
[2023-09-28] MEDS: HEPARIN 5000 UNITS SC ×2 (08:37→19:48)
[2023-09-28 08:41] LABS: Blood Urea Nitrogen 10 mg/dl (7-17); Calcium 7.5 mg/dl (8.4-10.2); Carbon Dioxide 29 mmol/L (22-30); Chloride 105 mmol/L (98-107); Estimated Creatinine Clearance 57 ml/min; Glucose 129 mg/dl (70-99); Potassium 3.3 mmol/L (3.5-5.1); Sodium 136 mmol/L (135-145); eGFR > 60.00
--- NOTE | 2023-09-28 10:20 | W.PN.HOSP.TC ---
Addendum entered and electronically signed by Ck Boucher MD 09/28/23 14:05:
Hyponatremia considered insignificant as in relation to pseudohyponatremia from her continued elevated blood sugars
Because of fall and fracture underlying osteoporosis may have contributed to her fracture
Original Note:
Today's Communication/Plan
-
Appears stable for proposed hemiarthroplasty of right hip tomorrow
Based on the Fritz perioperative noncardiac risk assessment she has a an estimated risk of probability of perioperative CA or cardiac arrest of 0.42%/very low risk
Continue to monitor blood sugars
Fever has resolved
Treat upper respiratory congestion with Mucinex
Assessment / Plan
Assessment / Plan
83-year-old female with past medical history of atrial myxoma status post resection, paroxysmal atrial fibrillation on Eliquis, hypertension, hyperlipidemia, and diabetes presents with right hip pain status post fall.� Patient reports that she
slipped, and fell at her friend's house after midnight.� She was found to have impacted fracture of the femoral neck into the head of the proximal right femur.
#Closed impacted fracture of right femoral neck
#Mechanical fall
Sees Dr. Null
Appreciate orthopedic surgery input, plan for surgery on Wednesday after Eliquis washout (last dose 7am on 09/25)
Tylenol and oxycodone for pain, bowel regimen
PT/OT consult after surgery
-Based on the Fritz perioperative noncardiac risk assessment she has a an estimated risk of probability of perioperative CA or cardiac arrest of 0.42%/very low risk
#Fever/now resolved
Patient febrile with temp of 100.4/no afebrile x 24 hours
-Chest x-ray did show questionable basilar infiltrate right/
-Will check procalcitonin today if normal would not place on antibiotic
No leukocytosis
Check lower extremity Dopplers to evaluate for DVT was negative for thrombus
, urine analysis no signs of infection, influenza/COVID both negative, blood cultures x 2(no growth to date)
#Uncontrolled type 2 diabetes/in relation to also concomitant low-dose steroid usage for RA
Patient does not know her insulin dosages
Hemoglobin A1c uncontrolled at 11.2, she admits to not being compliant with diet
Start NovoLog 4 units AC 3 times daily, Lantus 15 units at bedtime
Sliding scale insulin, diabetic diet
-In the postop setting we will discontinue her low-dose prednisone is only contributing to her hyperglycemia
# Paroxysmal atrial fibrillation
Holding Eliquis for surgery
Continue metoprolol
#Hypokalemia
Repleted and resolved, Mg normal
#Rheumatoid arthritis
Continue hydroxychloroquine, prednisone 15 mg daily
#HLD
Continue Atorvastatin
#Anxiety/Depression
Continue Sertraline
DVT prophylaxis�subcu heparin (hold 2/7 am for surg)
Full code
Total time spent to see the patient on the floor, examine the patient, review data and lab results, discuss treatment plan with patient, nursing staff around 51 minutes.
Physical Exam
General: Frail, elderly, no acute distress
HEENT: Normocephalic, Atraumatic, EOMI, MMM
Respiratory: Clear to Auscultation bilaterally
Cardiac: Normal S1/S2, Regular Rate and Rhythm
GI: Soft, Nontender, Nondistended, Normal Bowel Sounds
Musculoskeletal: Right leg mildly shortened and externally rotated
Anticipated Discharge: Within 24 hours
Subjective/Interval History
-
Date of Service: September 28, 2023
In good spirits denies any complaints other than some mild upper respiratory congestion in her throat states blood sugars have been persistently elevated ever since her rn ed put her on low-dose prednisone which did not help her arthritis
which she wants to stop.
Objective Data
-
Labs:
Laboratory Results
09/28/23
06:17
WBC 6.2
Hgb 11.3 L
Hct 34.2 L
Plt Count 146 D
Sodium 136
Potassium 3.3 L
Chloride 105
Carbon Dioxide 29
BUN 10
Creatinine 0.5 L
Glucose 129 H
Calcium 7.5 L
Vital Signs:
Vital Signs
Temp Pulse Resp BP Pulse Ox
98.0 F 66 20 108/73 98
09/28/23 07:30 09/28/23 07:30 09/28/23 07:30 09/28/23 07:30 09/28/23 07:30
I&O
09/27/23 09/28/23 09/29/23
06:59 06:59 06:59
Intake Total 1140 / 1140 1380 / 1380
Output Total 1500 / 1500 1050 / 1050
Balance -360 / -360 330 / 330
Review of Systems
-
History Source: Patient
EENT: Reports No Symptoms Reported
Respiratory: Reports No Symptoms
Cardiac: Reports No Symptoms
Abdomen/GI: Reports No Symptoms
Physical Exam
-
General: Well Developed
HEENT: Normocephalic
Respiratory: Clear to Auscultation
Cardiac: Regular Rhythm and Other (Pacer pocket)
GI: Soft
Musculoskeletal: Edema, Right Lower Extrem
Skin: Warm
Neuro: Awake, Alert and Oriented
Data Reviewed
-
Total Time Spent with Patient (in minutes): 56
Medical Tests (Nuc Med, Echo etc): Report Reviewed by me and Discussed with Patient
Labs: Labs Reviewed by me (Potassium 3.3/sugars elevated in the afternoon yesterday/okay this morning)
[2023-09-28] MEDS: KCL 20 MEQ PO (11:33)
[2023-09-28 11:40] VITALS: BP 135/85
[2023-09-28 12:09] LABS: Glucose - Point of Care 172 mg/dl (70-99)
[2023-09-28] MEDS: NOVOLOG FLEXPEN-MODERATE RESISTANCE 1 UNITS SC (13:26)
--- NOTE | 2023-09-28 13:32 | PN.CDI ---
CDI
- -
CDI:
Physician Documentation Request
Admit Date: 09/25/23 13:52
Dear Doctor Citlaly,
Patient admitted with closed impacted fracture of right femoral neck.
Na levels documented below:
Patient received IV NSS.
Laboratory Tests
09/25/23 09/26/23 09/27/23
12:14 06:45 07:14
Sodium 134 L 133 L 134 L
Based on the above, could you clarify in the progress notes, the appropriate diagnosis, if significant, that supports the above abnormalities and additional evaluation, monitoring and/or treatment rendered:
Hyponatremia
Insignificant abnormal lab finding
Other
Unable to determine
Use of terms such as suspected, likely, concern for, or probable (associated with a specific diagnosis that is being evaluated, monitored, or treated as if it exists) are acceptable and can be coded in the inpatient setting, when documented at the
time of discharge.
Thank you,
Hafsa EWING,RN,CCDS
CDI Specialist
Available via [place] text
Please use your independent medical judgment in providing your response.
--- NOTE | 2023-09-28 13:47 | PN.CDI ---
CDI
- -
CDI:
Physician Documentation Request
Admit Date: 09/25/23 13:52
Dear Doctor Citlaly,
Patient admitted with closed impacted fracture of right femoral neck.
2/6 PN, 'Patient reports that she slipped, and fell at her friend's house after midnight.'�
/ Hip x-ray, 'Diffuse osteopenia is noted.'
Home medications include Alendronate for osteoporosis and Vitamin D3.
Please provide the etiology/ etiologies of right femoral neck fracture:
Multifactorial due to low level fall and osteoporosis
Low level fall only
Other
Use of terms such as suspected, likely, concern for, or probable (associated with a specific diagnosis that is being evaluated, monitored, or treated as if it exists) are acceptable and can be coded in the inpatient setting, when documented at the
time of discharge.
Thank you,
Hafsa EWING,RN,CCDS
CDI Specialist
Available via [place] text
Please use your independent medical judgment in providing your response.
--- NOTE | 2023-09-28 14:28 | CM ---
Chart reviewed and patient is for possible OR tomorrow, case sealer will follow with PT/OT, patient will need new orders for PT/OT to assist with discharge planning.
Plan; Await PT/OT evaluations for discharge planning needs.
[2023-09-28 16:00] VITALS: BP 105/64
[2023-09-28 16:59] LABS: Glucose - Point of Care 238 mg/dl (70-99)
[2023-09-28] MEDS: TOPROL XL 25 MG PO (17:35)
[2023-09-28] MEDS: LIPITOR 20 MG PO (17:35)
[2023-09-28] MEDS: NOVOLOG FLEXPEN-MODERATE RESISTANCE 3 UNITS SC (18:21)
[2023-09-28] MEDS: BENTYL 10 MG PO (18:21)
[2023-09-28 19:30] VITALS: BP 106/55
[2023-09-28 21:29] LABS: Glucose - Point of Care 289 mg/dl (70-99)
[2023-09-28] MEDS: LANTUS 0.149999999999999994 UNITS SC (21:37)
[2023-09-28 23:40] VITALS: BP 123/60
[2023-09-29] VITALS (13 sets, daily range): BP systolic 102–137; BP diastolic 49–67; PULSE 61–82; O2SAT 99–100
[2023-09-29 06:04] LABS: Glucose - Point of Care 90 mg/dl (70-99)
--- NOTE | 2023-09-29 07:42 | W.PN.UPDATE ---
Update Note
Progress Note Update
Ms. Marrero is resting comfortably in bed this morning. She reports she is doing well, and denies any pain in the hip at present. She has no questions or concerns at this time.
Directed exam of the RLE reveals ecchymosis about the lateral hip. No tenderness to palpation about the hip. Thigh soft and compressible. Calf soft and nontender. Patient able to wiggle toes, plantar and dorsiflex ankle. NVID.
Hgb pending this AM. VSS.
Plan to proceed with right total hip arthroplasty today under the direction of Dr. Null. NWB to RLE until surgery. NPO until surgery. Consents signed and in patient's chart. Pre-operative orders placed.
[2023-09-29 07:46] LABS: Hematocrit 34.9 % (37.0-47.0); Hemoglobin 11.6 g/dL (12.0-16.0); Mean Corp Hgb Conc. 33.2 g/dL (33.0-37.0); Mean Corpuscular Hgb 28.6 pg (27.0-31.0); Mean Corpuscular Volume 86.2 fL (81.0-99.0); Mean Platelet Volume 10.7 fL (7.4-10.4); Platelet Count 162 10^3/uL (130-400); Red Blood Cell Count 4.05 10^6/uL (4.20-5.40); White Blood Cell Count 5.8 10^3/uL (4.8-10.8)
[2023-09-29 08:11] LABS: Blood Urea Nitrogen 16 mg/dl (7-17); Calcium 7.7 mg/dl (8.4-10.2); Carbon Dioxide 29 mmol/L (22-30); Chloride 103 mmol/L (98-107); Estimated Creatinine Clearance 57 ml/min; Glucose 65 mg/dl (70-99); Potassium 3.1 mmol/L (3.5-5.1); Sodium 138 mmol/L (135-145); eGFR > 60.00
[2023-09-29] MEDS: NOVOLOG FLEXPEN SC ×2 (08:49→16:48)
[2023-09-29] MEDS: DELTASONE 15 MG PO (08:56)
[2023-09-29] MEDS: ZOLOFT 100 MG PO (08:56)
[2023-09-29] MEDS: ZENPEP DELAYED RELEASE CAPSULE 1 CAPSULE PO ×2 (08:56→20:51)
[2023-09-29] MEDS: TYLENOL 1000 MG PO (08:56)
[2023-09-29] MEDS: PLAQUENIL 200 MG PO ×2 (08:57→20:51)
[2023-09-29] MEDS: HEPARIN SC (08:57)
[2023-09-29] MEDS: OCUVITE SOFTGEL 1 CAP PO ×2 (08:57→20:51)
[2023-09-29] MEDS: MIRALAX PO (08:57)
--- NOTE | 2023-09-29 10:20 | W.PN.HOSP.TC ---
Today's Communication/Plan
-
Replete potassium today prior to surgery/ avoid any postop Dilaudid for pain relief as has caused delirium in the past.
Based on the Fritz perioperative noncardiac risk assessment she has a an estimated risk of probability of perioperative NM or cardiac arrest of 0.42%/ low risk
Check chemistries and CBC in a.m. DVT prophylaxis to resume on Eliquis once cleared by surgery
Assessment / Plan
Assessment / Plan
83-year-old female with past medical history of atrial myxoma status post resection, paroxysmal atrial fibrillation on Eliquis, hypertension, hyperlipidemia, and diabetes presents with right hip pain status post fall.� Patient reports that she
slipped, and fell at her friend's house after midnight.� She was found to have impacted fracture of the femoral neck into the head of the proximal right femur.
#Closed impacted fracture of right femoral neck
#Mechanical fall
Sees Dr. Null
Appreciate orthopedic surgery input, plan for surgery on Wednesday after Eliquis washout (last dose 7am on 09/25)
Tylenol and oxycodone for pain, bowel regimen
PT/OT consult after surgery
-Based on the Fritz perioperative noncardiac risk assessment she has a an estimated risk of probability of perioperative NM or cardiac arrest of 0.42%/ low risk
-Will document adverse reaction to hydromorphone as a possible cause of delirium from previous joint surgery and this will be avoided.
#Fever/now resolved
Patient febrile with temp of 100.4/no afebrile x 24 hours
-Chest x-ray did show questionable basilar infiltrate right/
-Will check procalcitonin today if normal would not place on antibiotic
No leukocytosis
Check lower extremity Dopplers to evaluate for DVT was negative for thrombus
, urine analysis no signs of infection, influenza/COVID both negative, blood cultures x 2(no growth to date)
#Uncontrolled type 2 diabetes/in relation to also concomitant low-dose steroid usage for RA
Patient does not know her insulin dosages
Hemoglobin A1c uncontrolled at 11.2, she admits to not being compliant with diet
Start NovoLog 4 units AC 3 times daily, Lantus 15 units at bedtime
Sliding scale insulin, diabetic diet
-In the postop setting we will discontinue her low-dose prednisone is only contributing to her hyperglycemia
# Paroxysmal atrial fibrillation
Holding Eliquis for surgery
Continue metoprolol
#Hypokalemia
Repleted and resolved, Mg normal
#Rheumatoid arthritis
Continue hydroxychloroquine, prednisone 15 mg daily
#HLD
Continue Atorvastatin
#Anxiety/Depression
Continue Sertraline
DVT prophylaxis�subcu heparin (hold 2/7 am for surg)
Full code
Total time spent to see the patient on the floor, examine the patient, review data and lab results, discuss treatment plan with patient, nursing staff around 51 minutes.
Physical Exam
General: Frail, elderly, no acute distress
HEENT: Normocephalic, Atraumatic, EOMI, MMM
Respiratory: Clear to Auscultation bilaterally
Cardiac: Normal S1/S2, Regular Rate and Rhythm
GI: Soft, Nontender, Nondistended, Normal Bowel Sounds
Musculoskeletal: Right leg mildly shortened and externally rotated
Anticipated Discharge: 24 - 48 hours
Subjective/Interval History
-
Date of Service: September 29, 2023
No new issues or complaints overnight/she is quite concerned over the fact that on her last joint surgery she had an episode of acute delirium and suspects were in relation to either anesthesia or Dilaudid she received afterwards I assured her I
would document this/also daughter at bedside and both concerned that they have not had a chance to speak to orthopedics over the specifics of what is being done later today and surgery.
Objective Data
-
Labs:
Laboratory Results
09/29/23
06:25
WBC 5.8
Hgb 11.6 L
Hct 34.9 L
Plt Count 162
Sodium 138
Potassium 3.1 L
Chloride 103
Carbon Dioxide 29
BUN 16
Creatinine 0.4 L
Glucose 65 L
Calcium 7.7 L
Vital Signs:
Vital Signs
Temp Pulse Resp BP Pulse Ox
97.3 F 67 18 137/60 98
09/29/23 07:00 09/29/23 07:00 09/29/23 07:00 09/29/23 07:00 09/29/23 07:00
I&O
09/28/23 09/29/23 09/30/23
06:59 06:59 06:59
Intake Total 1380 / 1380 1080 / 1080
Output Total 1050 / 1050 1025 / 1025
Balance 330 / 330 55 / 55
Review of Systems
-
History Source: Patient and Family
Constitutional: Reports No Symptoms
Respiratory: Reports No Symptoms
Cardiac: Reports No Symptoms
Abdomen/GI: Reports No Symptoms
Physical Exam
-
General: Well Developed
HEENT: Normocephalic
Respiratory: Clear to Auscultation
Cardiac: Irregular Rhythm and Other (Pacer)
GI: Soft and Nontender
Skin: Warm
Neuro: Awake, Alert, Oriented and AO x 3
Data Reviewed
-
Total Time Spent with Patient (in minutes): 45
Labs: Labs Reviewed by me (Potassium down to 3.2)
[2023-09-29] MEDS: KCL 160 MEQ IV (10:23)
[2023-09-29 13:39] LABS: Glucose - Point of Care 133 mg/dl (70-99)
[2023-09-29] MEDS: NSS 1000 IV (14:15)
[2023-09-29 14:16] LABS: Glucose - Point of Care 113 mg/dl (70-99)
[2023-09-29] MEDS: MORPHINE SULFATE 1 MG IV ×2 (14:34→14:54)
[2023-09-29] MEDS: ROXICODONE 10 MG PO ×2 (15:31→22:47)
[2023-09-29 16:52] LABS: Glucose - Point of Care 172 mg/dl (70-99)
[2023-09-29] MEDS: TYLENOL 650 MG PO ×2 (16:56→20:51)
[2023-09-29] MEDS: LIPITOR 20 MG PO (17:01)
[2023-09-29] MEDS: TOPROL XL PO (17:03)
[2023-09-29] MEDS: NOVOLOG FLEXPEN 6 UNITS SC (17:34)
[2023-09-29] MEDS: BACTROBAN 2% OINTMENT 1 APPLIC NASAL (20:50)
[2023-09-29] MEDS: COLACE 100 MG PO (20:50)
[2023-09-29] MEDS: ELIQUIS 2.5 MG PO (20:51)
[2023-09-29] MEDS: SENOKOT 17.1999999999999993 MG PO (20:51)
[2023-09-29 21:39] LABS: Glucose - Point of Care 215 mg/dl (70-99)
[2023-09-29] MEDS: LANTUS 0.149999999999999994 UNITS SC (22:09)
[2023-09-29] MEDS: ANCEF 5 IV (22:10)
[2023-09-30] VITALS (7 sets, daily range): BP systolic 101–130; BP diastolic 57–71; PULSE 56–81; O2SAT 97–98
[2023-09-30] MEDS: TYLENOL 650 MG PO ×5 (00:30→21:16)
[2023-09-30] MEDS: TYLENOL PO (05:00)
[2023-09-30] MEDS: ANCEF 5 IV (05:35)
[2023-09-30 06:13] LABS: Hematocrit 33.9 % (37.0-47.0); Hemoglobin 11.1 g/dL (12.0-16.0); Mean Corp Hgb Conc. 32.7 g/dL (33.0-37.0); Mean Corpuscular Hgb 28.6 pg (27.0-31.0); Mean Corpuscular Volume 87.4 fL (81.0-99.0); Mean Platelet Volume 10.5 fL (7.4-10.4); Platelet Count 192 10^3/uL (130-400); Red Blood Cell Count 3.88 10^6/uL (4.20-5.40); Red Cell Dist. Width 14.4 % (11.5-14.5); White Blood Cell Count 11.3 10^3/uL (4.8-10.8)
[2023-09-30] MEDS: ROXICODONE 10 MG PO ×3 (06:41→16:27)
[2023-09-30 06:42] LABS: Blood Urea Nitrogen 18 mg/dl (7-17); Calcium 6.9 mg/dl (8.4-10.2); Carbon Dioxide 24 mmol/L (22-30); Chloride 102 mmol/L (98-107); Estimated Creatinine Clearance 57 ml/min; Glucose 189 mg/dl (70-99); Potassium 3.9 mmol/L (3.5-5.1); Sodium 131 mmol/L (135-145); eGFR > 60.00
--- NOTE | 2023-09-30 06:55 | W.PN.UPDATE ---
Update Note
Progress Note Update
RN notified FURNITURE SPRAYER of low Calcium 6.9, no recent albumin to treat corrected calcium, will add albumin to morning lab, Also will add Oscal daily
--- NOTE | 2023-09-30 07:09 | W.PN.HOSP.TC ---
Today's Communication/Plan
-
Monitor hemodynamics and electrolytes
Replete calcium
Potassium improved from yesterday
Hyponatremia this morning
Recheck in a.m.
Reduce prednisone to 7.5
Reduce Eliquis to 2.5 twice daily based on age and weight
Assessment / Plan
Assessment / Plan
83-year-old female with past medical history of atrial myxoma status post resection, paroxysmal atrial fibrillation on Eliquis, hypertension, hyperlipidemia, and diabetes presents with right hip pain status post fall.� Patient reports that she
slipped, and fell at her friend's house after midnight.� She was found to have impacted fracture of the femoral neck into the head of the proximal right femur.
#Closed impacted fracture of right femoral neck/now post right total hip arthroplasty
#Mechanical fal
-Activity postop as per surgical recommendations
Tylenol and oxycodone for pain, bowel regimen
PT/OT consult after surgery
-Based on the Fritz perioperative noncardiac risk assessment she has a an estimated risk of probability of perioperative DE or cardiac arrest of 0.42%/ low risk
-Will document adverse reaction to hydromorphone as a possible cause of delirium from previous joint surgery and this will be avoided.
#Fever/now resolved
Patient febrile with temp of 100.4/no afebrile x 24 hours
-Chest x-ray did show questionable basilar infiltrate right/
-Will check procalcitonin today if normal would not place on antibiotic
No leukocytosis
Check lower extremity Dopplers to evaluate for DVT was negative for thrombus
, urine analysis no signs of infection, influenza/COVID both negative, blood cultures x 2(no growth to date)
#Uncontrolled type 2 diabetes/in relation to also concomitant low-dose steroid usage for RA
Patient does not know her insulin dosages
Hemoglobin A1c uncontrolled at 11.2, she admits to not being compliant with diet
Start NovoLog 4 units AC 3 times daily, Lantus 15 units at bedtime
Sliding scale insulin, diabetic diet
-In the postop setting we will discontinue her low-dose prednisone is only contributing to her hyperglycemia
-With continued hyperglycemia and lack of effect per patient of 50 mg dosage of prednisone will reduce to 7.5
# Paroxysmal atrial fibrillation
Holding Eliquis for surgery/postop placed on dosage of 2.5 mg twice daily based on weight and age
Continue metoprolol
#Hypokalemia
Repleted and resolved, Mg normal
#Rheumatoid arthritis
Continue hydroxychloroquine, prednisone 15 mg daily>> 7.5
#HLD
Continue Atorvastatin
#Anxiety/Depression
Continue Sertraline
DVT prophylaxis�subcu heparin (hold 2/7 am for surg)
Full code
Total time spent to see the patient on the floor, examine the patient, review data and lab results, discuss treatment plan with patient, nursing staff around 51 minutes.
Physical Exam
General: Frail, elderly, no acute distress
HEENT: Normocephalic, Atraumatic, EOMI, MMM
Respiratory: Clear to Auscultation bilaterally
Cardiac: Normal S1/S2, Regular Rate and Rhythm
GI: Soft, Nontender, Nondistended, Normal Bowel Sounds
Musculoskeletal: Right leg mildly shortened and externally rotated
Anticipated Discharge: 24 - 48 hours
Subjective/Interval History
-
Date of Service: September 30, 2023
Patient having pain issues waiting to see how oxycodone does for her. If she had also a difficult time with the spinal yesterday that she remembers. She denies any chest pain any shortness of breath looks a little pale.
Objective Data
-
Labs:
Laboratory Results
09/30/23 09/30/23
05:29 05:30
WBC 11.3 H
Hgb 11.1 L
Hct 33.9 L
Plt Count 192
Sodium 131 L
Potassium 3.9 D
Chloride 102
Carbon Dioxide 24
BUN 18 H
Creatinine 0.5 L
Glucose 189 H
Calcium 6.9 L*
Vital Signs:
Vital Signs
Temp Pulse Resp BP Pulse Ox
98.1 F 71 16 119/59 98
09/30/23 03:35 09/30/23 03:35 09/30/23 03:35 09/30/23 03:35 09/30/23 03:35
I&O
09/29/23 09/30/23 10/01/23
06:59 06:59 06:59
Intake Total 1080 / 1080 1945
Output Total 1025 / 1025
Balance 55 / 55 1945
Review of Systems
-
History Source: Patient
All other systems: Reviewed and negative
EENT: Reports No Symptoms Reported
Cardiac: Reports No Symptoms
Abdomen/GI: Reports No Symptoms
Genitourinary: Reports No Symptoms
Neuro: Reports No Symptoms; Denies Dizzy
Allergy / Immunology: Reports No Symptoms
Physical Exam
-
General: Well Developed
HEENT: Normocephalic
Respiratory: Clear to Auscultation
Cardiac: Regular Rhythm
GI: Soft
Musculoskeletal: Edema, Right Lower Extrem and Edema, Left Lower Extrem
Skin: Warm
Neuro: Awake
Psych: Calm
Data Reviewed
-
Total Time Spent with Patient (in minutes): 56
Labs: Labs Reviewed by me (White count up to 11.3 hemoglobin 11.1 and stable/calcium depressed at 6.9)
[2023-09-30 07:31] LABS: Albumin 2.6 g/dl (3.5-5.0)
--- NOTE | 2023-09-30 07:35 | W.PN.ORTHO ---
Today's Communication / Plan
-
PT/OT
Mechanical devices/Eliquis for DVT prophylaxis
Weightbearing as tolerated
Hip precautions
Return to office 2 weeks for skin clip removal
Assessment
.
Distal Motor Intact: Yes
Dressing:
Clean, dry and intact.
Plan
.
Surgery / Date: 09/29 [place]
DVT Prophylaxis: Other (Eliquis)
Activity:
Out of bed.
PT/OT
Discharge Plan: SNF
Subjective
.
.:
Patient resting comfortably.
Vital Signs and Labs
.
Vital Signs and Labs:
Lab Results
09/30/23 05:30
09/30/23 05:29
Temp Pulse Resp BP Pulse Ox
98.1 F 71 16 119/59 98
09/30/23 03:35 09/30/23 03:35 09/30/23 03:35 09/30/23 03:35 09/30/23 03:35
Non-invasive Hgb result: 11.1
[2023-09-30 07:52] LABS: Glucose - Point of Care 187 mg/dl (70-99)
[2023-09-30] MEDS: ELIQUIS 2.5 MG PO ×2 (08:56→21:15)
[2023-09-30] MEDS: OCUVITE SOFTGEL 1 CAP PO ×2 (08:56→21:14)
[2023-09-30] MEDS: DELTASONE 7.5 MG PO (08:56)
[2023-09-30] MEDS: PLAQUENIL 200 MG PO ×2 (08:56→21:17)
[2023-09-30] MEDS: ZENPEP DELAYED RELEASE CAPSULE 1 CAPSULE PO ×2 (08:56→21:15)
[2023-09-30] MEDS: COLACE 100 MG PO ×2 (08:56→21:15)
[2023-09-30] MEDS: OSCAL 500 + D 500 MG PO (08:56)
[2023-09-30] MEDS: SENOKOT 17.1999999999999993 MG PO ×2 (08:57→21:14)
[2023-09-30] MEDS: NOVOLOG FLEXPEN 6 UNITS SC ×3 (08:57→17:43)
[2023-09-30] MEDS: ZOLOFT 100 MG PO (08:57)
[2023-09-30] MEDS: MIRALAX 17 GRAMS PO (08:57)
[2023-09-30] MEDS: CALCIUM GLUCONATE 100 IV (08:58)
[2023-09-30] MEDS: NOVOLOG FLEXPEN-MODERATE RESISTANCE 1 UNITS SC (08:58)
[2023-09-30] MEDS: BACTROBAN 2% OINTMENT 1 APPLIC NASAL ×2 (09:00→21:29)
[2023-09-30 12:31] LABS: Glucose - Point of Care 274 mg/dl (70-99)
[2023-09-30] MEDS: NOVOLOG FLEXPEN-MODERATE RESISTANCE 5 UNITS SC ×2 (13:18→17:43)
--- NOTE | 2023-09-30 13:43 | CM ---
Addendum entered by Jackson Yates 09/30/23 13:50:
[facility] is [facility]. Referral has already been forwarded and patient accepted pending bed availability.
Original Note:
PT has recommended SNF for fci and rehab. Medicare [employer] list given to patient requesting 6 preferences. First preference is [facility]. Referral will be sent. Spoke with [id number], Jo Ann Kemp, who was visiting
and CM reiterated request for additional preferences in the event [facility] is not able to accept. Expressed understanding.
[2023-09-30 16:23] LABS: Glucose - Point of Care 448 mg/dl (70-99)
[2023-09-30 17:01] LABS: Glucose 280 mg/dl (70-99)
[2023-09-30] MEDS: LIPITOR 20 MG PO (17:41)
[2023-09-30] MEDS: TOPROL XL 25 MG PO (17:41)
[2023-09-30] MEDS: MELATONIN 5 MG PO (21:16)
[2023-09-30 21:23] LABS: Glucose - Point of Care 237 mg/dl (70-99)
[2023-09-30] MEDS: LANTUS 0.149999999999999994 UNITS SC (21:29)
[2023-10-01] MEDS: TYLENOL PO ×2 (01:16→05:24)
[2023-10-01] MEDS: ROXICODONE 10 MG PO (03:25)
[2023-10-01 03:40] VITALS: BP 134/60
[2023-10-01 06:17] LABS: Hematocrit 26.6 % (37.0-47.0); Mean Corp Hgb Conc. 33.1 g/dL (33.0-37.0); Mean Corpuscular Hgb 29.2 pg (27.0-31.0); Mean Corpuscular Volume 88.4 fL (81.0-99.0); Mean Platelet Volume 10.6 fL (7.4-10.4); Platelet Count 129 10^3/uL (130-400); Red Blood Cell Count 3.01 10^6/uL (4.20-5.40); Red Cell Dist. Width 14.2 % (11.5-14.5); White Blood Cell Count 5.8 10^3/uL (4.8-10.8)
[2023-10-01 06:19] LABS: Hemoglobin 8.8 g/dL (12.0-16.0)
--- NOTE | 2023-10-01 06:27 | PTCARENOTE ---
hgb 11.1 yesterday and 8.8 today. cardiology technician notfied. no new orders. will monitor.
[2023-10-01 06:28] LABS: Blood Urea Nitrogen 17 mg/dl (7-17); Calcium 7.8 mg/dl (8.4-10.2); Carbon Dioxide 29 mmol/L (22-30); Chloride 101 mmol/L (98-107); Estimated Creatinine Clearance 57 ml/min; Glucose 167 mg/dl (70-99); Sodium 134 mmol/L (135-145); eGFR > 60.00
[2023-10-01 07:41] LABS: Glucose - Point of Care 158 mg/dl (70-99)
[2023-10-01 07:51] VITALS: BP 111/60
--- NOTE | 2023-10-01 07:55 | W.PN.HOSP.TC ---
Today's Communication/Plan
-
Medically stable for discharge to rehab
Hemodynamically stable
Has been resumed on Eliquis 2.5 twice daily
Would continue her lower dosage of prednisone at 7.5 and then further taper while at rehab
We can reduce her insulin maintenance accordingly at discharge
Assessment / Plan
Assessment / Plan
83-year-old female with past medical history of atrial myxoma status post resection, paroxysmal atrial fibrillation on Eliquis, hypertension, hyperlipidemia, and diabetes presents with right hip pain status post fall.� Patient reports that she
slipped, and fell at her friend's house after midnight.� She was found to have impacted fracture of the femoral neck into the head of the proximal right femur.
#Closed impacted fracture of right femoral neck/now post right total hip arthroplasty
#Mechanical fal
-Activity postop as per surgical recommendations
Tylenol and oxycodone for pain, bowel regimen
PT/OT consult after surgery
-Based on the Fritz perioperative noncardiac risk assessment she has a an estimated risk of probability of perioperative PA or cardiac arrest of 0.42%/ low risk
-Will document adverse reaction to hydromorphone as a possible cause of delirium from previous joint surgery and this will be avoided.
#Fever/now resolved
Patient febrile with temp of 100.4/no afebrile x 24 hours
-Chest x-ray did show questionable basilar infiltrate right/
-Will check procalcitonin today if normal would not place on antibiotic
No leukocytosis
Check lower extremity Dopplers to evaluate for DVT was negative for thrombus
, urine analysis no signs of infection, influenza/COVID both negative, blood cultures x 2(no growth to date)
#Uncontrolled type 2 diabetes/in relation to also concomitant low-dose steroid usage for RA
Patient does not know her insulin dosages
Hemoglobin A1c uncontrolled at 11.2, she admits to not being compliant with diet
Start NovoLog 4 units AC 3 times daily, Lantus 15 units at bedtime
Sliding scale insulin, diabetic diet
-In the postop setting we will taper her low-dose prednisone is only contributing to her hyperglycemia
-With continued hyperglycemia and lack of effect per patient of 15 mg dosage of prednisone will reduce to 7.5
# Paroxysmal atrial fibrillation
Holding Eliquis for surgery/postop placed on dosage of 2.5 mg twice daily based on weight and age
Continue metoprolol
#Hypokalemia
Repleted and resolved, Mg normal
#Rheumatoid arthritis
Continue hydroxychloroquine, prednisone 15 mg daily>> 7.5
#HLD
Continue Atorvastatin
#Anxiety/Depression
Continue Sertraline
DVT prophylaxis�subcu heparin (hold 2/7 am for surg)
Full code
Total time spent to see the patient on the floor, examine the patient, review data and lab results, discuss treatment plan with patient, nursing staff around 51 minutes.
Physical Exam
General: Frail, elderly, no acute distress
HEENT: Normocephalic, Atraumatic, EOMI, MMM
Respiratory: Clear to Auscultation bilaterally
Cardiac: Normal S1/S2, Regular Rate and Rhythm
GI: Soft, Nontender, Nondistended, Normal Bowel Sounds
Musculoskeletal: Right leg mildly shortened and externally rotated
Anticipated Discharge: Today
Subjective/Interval History
-
Date of Service: October 01, 2023
Some degree of discomfort when she moves around the bed had some improvement with PT yesterday but still not independent and will require SNF
Objective Data
-
Labs:
Laboratory Results
10/01/23
04:48
WBC 5.8
Hgb 8.8 L D
Hct 26.6 L
Plt Count 129 L D
Sodium 134 L
Potassium 4.0
Chloride 101
Carbon Dioxide 29
BUN 17
Creatinine 0.5 L
Glucose 167 H
Calcium 7.8 L
Vital Signs:
Vital Signs
Temp Pulse Resp BP Pulse Ox
98.4 F 63 16 111/60 95
10/01/23 07:51 10/01/23 07:51 10/01/23 07:51 10/01/23 07:51 10/01/23 07:51
I&O
09/30/23 10/01/23 10/02/23
06:59 06:59 06:59
Intake Total 1945 700 / 700
Balance 1945 700 / 700
Review of Systems
-
History Source: Patient and Family
Constitutional: Reports Weakness
EENT: Reports No Symptoms Reported
Respiratory: Reports No Symptoms
Cardiac: Reports No Symptoms
Abdomen/GI: Reports No Symptoms
Musculoskeletal: Reports Joint Swelling, Muscle Pain and Myalgias
Physical Exam
-
General: Well Developed
HEENT: Normocephalic
Respiratory: Clear to Auscultation
Cardiac: Regular Rhythm
GI: Soft
Genito-urinary: No Costovertebral Tender
Skin: Warm
Neuro: Awake, Alert and Oriented
Psych: Calm
Data Reviewed
-
Total Time Spent with Patient (in minutes): 56
Labs: Labs Reviewed by me (Hemoglobin down to 8.8/sodium improved to 134/calcium improved to 7.8/renal status stable)
[2023-10-01] MEDS: ELIQUIS 2.5 MG PO ×2 (08:12→20:19)
[2023-10-01] MEDS: OSCAL 500 + D 500 MG PO (08:12)
[2023-10-01] MEDS: COLACE 100 MG PO ×2 (08:12→20:19)
[2023-10-01] MEDS: MIRALAX 17 GRAMS PO (08:12)
[2023-10-01] MEDS: ZOLOFT 100 MG PO (08:12)
[2023-10-01] MEDS: TYLENOL 650 MG PO ×4 (08:12→20:19)
--- NOTE | 2023-10-01 08:12 | W.DS.TRANS ---
DC Summary - [employer] Consultant
-
Discharge Instructions:
Discharge Diagnosis/Procedures Status post right femoral neck fracture/
mechanical fall
Status post right total hip arthroplasty on
September 29
Paroxysmal atrial fibrillation
Pacemaker
Rheumatoid arthritis
Hyperglycemia from steroid management now on
tapered prednisone
Diet No restrictions
Additional Activity Mechanical devices for weightbearing as
tolerated hip precautions
Return to orthopedic office in 2 weeks for skin
clip removal
Instructions:
Stand-Alone Forms:
Changes to Home Medications: Yes
Discharge Medications:
DC Medications w/original date entered in [employer]
atorvastatin 20 mg tablet 20 mg PO QPM High cholesterol 04/02/22
cholecalciferol (vitamin D3) 125 mcg (5,000 unit) tablet (Vitamin D3) 125 mcg PO DAILY Supplement 04/02/22
insulin aspart U-100 100 unit/mL (3 mL) subcutaneous pen (Novolog FlexPen U-100 Insulin aspart) 0 sliding scale dose SC AC Diabetes 04/02/22
lactobacillus combination no.4 3 billion cell capsule (Probiotic) 3,000 mmu cells PO DAILY Gastrointestinal issue 04/02/22
rufalw-[id number]-jqxdpuv 36,000-114,000-180,000 unit capsule,delay rel (Creon) 1 cap PO BID Gastrointestinal issue 04/02/22
metoprolol succinate 25 mg tablet,extended release 24 hr 25 mg PO QPM Blood pressure 04/02/22
multivitamin 1 tab PO DAILY Supplement 04/02/22
omeprazole 20 mg capsule,delayed release 20 mg PO DAILY Gastrointestinal issue 04/02/22
sertraline 100 mg tablet 100 mg PO DAILY Mental Health 04/02/22
vit C 250 mg-vit E 90 mg-zinc 40 mg-copper 1 xy-awffon-tuuwxo capsule (PreserVision AREDS-2) 1 tab PO BID Supplement 04/02/22
alendronate 70 mg tablet 70 mg PO WEEKLY osteoporosis 09/25/23
hydroxychloroquine 200 mg tablet 200 mg PO BID Autoimmune Disorder 09/25/23
apixaban 2.5 mg tablet (Eliquis) 2.5 mg PO BID #0 tabs 10/01/23
calcium carbonate 500 mg-vitamin D3 5 mcg (200 unit) tablet (Oyster Shell Calcium-Vitamin D3) 1 tab PO DAILY Supplement #14 tabs 10/01/23
dicyclomine 10 mg capsule 10 mg PO QIDPRN PRN abd pain #0 caps 10/01/23
docusate sodium 100 mg capsule 100 mg PO BID #0 caps 10/01/23
insulin glargine 100 unit/mL subcutaneous solution (Lantus U-100 Insulin) 5 unit (0.05 mL) SC QPM Diabetes #0 mL 10/01/23
oxycodone 5 mg tablet 5 mg PO Q4HPRN PRN mild-moderate pain #20 tabs 10/01/23
polyethylene glycol 3350 17 gram oral powder packet (HealthyLax) 17 g PO DAILY #0 ea 10/01/23
prednisone 5 mg tablet 7.5 mg PO DAILY #0 tabs 10/01/23
Home Medication Changes
apixaban 2.5 mg tablet (Eliquis) 2.5 mg PO BID #0 tabs 10/01/23
calcium carbonate 500 mg-vitamin D3 5 mcg (200 unit) tablet (Oyster Shell Calcium-Vitamin D3) 1 tab PO DAILY Supplement #14 tabs 10/01/23
dicyclomine 10 mg capsule 10 mg PO QIDPRN PRN abd pain #0 caps 10/01/23
docusate sodium 100 mg capsule 100 mg PO BID #0 caps 10/01/23
insulin glargine 100 unit/mL subcutaneous solution (Lantus U-100 Insulin) 5 unit (0.05 mL) SC QPM Diabetes #0 mL 10/01/23
oxycodone 5 mg tablet 5 mg PO Q4HPRN PRN mild-moderate pain #20 tabs 10/01/23
polyethylene glycol 3350 17 gram oral powder packet (HealthyLax) 17 g PO DAILY #0 ea 10/01/23
prednisone 5 mg tablet 7.5 mg PO DAILY #0 tabs 10/01/23
Pending Results: No
Total time spent discharging patient (in min): 38
[2023-10-01] MEDS: OCUVITE SOFTGEL 1 CAP PO ×2 (08:13→20:19)
[2023-10-01] MEDS: DELTASONE 7.5 MG PO ×2 (08:13)
[2023-10-01] MEDS: ZENPEP DELAYED RELEASE CAPSULE 1 CAPSULE PO ×2 (08:13→20:19)
[2023-10-01] MEDS: PLAQUENIL 200 MG PO ×2 (08:13→20:19)
[2023-10-01] MEDS: SENOKOT 17.1999999999999993 MG PO ×2 (08:13→20:20)
[2023-10-01] MEDS: NOVOLOG FLEXPEN 6 UNITS SC ×3 (08:14→16:42)
[2023-10-01] MEDS: NOVOLOG FLEXPEN-MODERATE RESISTANCE 1 UNITS SC ×2 (08:15→13:04)
[2023-10-01] MEDS: ROXICODONE 5 MG PO ×2 (08:20→17:34)
--- NOTE | 2023-10-01 09:17 | W.PN.ORTHO ---
Today's Communication / Plan
-
Appreciate the Hospitalist in the medical management of this patient
Appreciate CM with disposition, likely SNF
Continue WBAT B/L LE on walker/assistance
PT/OT, THPs x 12 weeks
Eliquis for DVT ppx
pain control, try to avoid narcs if possible
Dressing to remain 7-10 days
Outpatient Ortho follow-up in 4 weeks
Assessment
.
Distal Motor Intact: Yes
Dressing:
Clean, dry and intact. Aquacel in place right hip
Assessment:
POD# 2 Right BETTY
Overall doing/feeling well
Calf soft, nontender
Plan
.
Surgery / Date: Right BETTY Oct 16 ([facility])
DVT Prophylaxis: Other (Eliquis)
Activity:
Out of bed. WBAT on walker
PT/OT, THPs x 12 weeks
Discharge Plan: SNF
Subjective
.
.:
Patient resting comfortably. endorses mild pain right hip
Vital Signs and Labs
.
Vital Signs and Labs:
Lab Results
10/01/23 04:48
10/01/23 04:48
Temp Pulse Resp BP Pulse Ox
98.4 F 63 16 111/60 95
10/01/23 07:51 10/01/23 07:51 10/01/23 07:51 10/01/23 07:51 10/01/23 07:51
Non-invasive Hgb result: 12.6
--- NOTE | 2023-10-01 10:59 | W.DCSUMMARY ---
Addendum entered and electronically signed by Ck Boucher MD 10/01/23 14:03:
Had bowel movement was noted to have bright red blood dripping from rectum and some in stool/we will not alter his therapy continue Eliquis recheck CBC in a.m. bed disposition to SNF still not available and will cancel discharge for today.
Original Note:
Discharge Summary
Discharge Data
Date of Admission: 09/25/23
Date of Discharge: 10/01/23
-
Pending Results: No
Hospital Course
83-year-old female with past medical history of atrial myxoma status post resection, paroxysmal atrial fibrillation on Eliquis, hypertension, hyperlipidemia, and diabetes presents with right hip pain status post fall.� Patient reports that she
slipped, and fell at her friend's house after midnight.� She was found to have impacted fracture of the femoral neck into the head of the proximal right femur.
She is subsequently admitted to the medical surgical floor and follow on telemetry based on her history of A-fib and her anticoagulant therapy she needed a washout period of Eliquis prior to proposed surgical intervention for her hip. Her
perioperative risk profile was low and she was cleared by medical service after washout. Her medical comorbidities included ongoing hyperglycemia with smoldering and prediabetic status but has been instigated by also recent course of steroid
management for rheumatoid arthritis and she required insulin maintenance therapy along with titration for periods of hyperglycemia in the perioperative period. Electrolyte deficits were replaced noninvasive hemoglobin preop was 2.6. 8.8 she has
remained hemodynamically stable
Per orthopedics patient is to remain weightbearing as tolerated bilateral lower extremities with walker assistance PT/OT and total hip precautions x 12 weeks with DVT prophylaxis with Eliquis of note her Eliquis dosage of 5 mg twice a day based on
her weight and age was decreased to 2.5 mg twice daily and will continue at that dosage pain management will goal will be to try and avoid narcotic analgesia dressings to remain in intact for 10 7 to 10 days and then outpatient follow-up with
orthopedics in 4 weeks
We also diminished her prednisone from 15 and 77.5 mg p.o. daily and this should probably be continued to be tapered down as patient herself states that she has not had any result with this in relation to her rheumatoid arthritis and further
follow-up with a herb counselor would be warranted after her rehab. Resultant hyperglycemia should improve with a diminished dosing with diminished insulin requirements as result.
Discharge Plan
-
Patient Disposition: Long Term/SNF
Discharge Diagnosis/Procedures: Status post right femoral neck fracture/mechanical fall
Status post right total hip arthroplasty on September 29
Paroxysmal atrial fibrillation
Pacemaker
Rheumatoid arthritis
Hyperglycemia from steroid management now on tapered prednisone
Diet: No restrictions
Additional Activity: Mechanical devices for weightbearing as tolerated hip precautions
Return to orthopedic office in 2 weeks for skin clip removal
Referrals:
César Varghese DO [Family Provider] - in less than 1 week
Jose Null MD [Active] - 10/13/23
Prescriptions:
New
polyethylene glycol 3350 [HealthyLax] 17 gram Powder In Packet
17 g PO DAILY Qty: 0 0RF
prednisone 5 mg Tablet
7.5 mg PO DAILY Qty: 0 0RF
docusate sodium 100 mg Capsule
100 mg PO BID Qty: 0 0RF
dicyclomine 10 mg Capsule
10 mg PO QIDPRN PRN (Reason: abd pain) Qty: 0 0RF
oxycodone 5 mg Tablet
5 mg PO Q4HPRN PRN (Reason: mild-moderate pain) Qty: 20 0RF
calcium carbonate-vitamin D3 [Oyster Shell Calcium-Vit D3] 500 mg-5 mcg (200 unit) Tablet
1 tab PO DAILY Qty: 14 0RF
Eliquis 2.5 mg Tablet
2.5 mg PO BID Qty: 0 0RF
Continued
atorvastatin 20 mg Tablet
20 mg PO QPM
sertraline 100 mg Tablet
100 mg PO DAILY
omeprazole 20 mg Capsule,Delayed Release(Dr/Ec)
20 mg PO DAILY
metoprolol succinate 25 mg Tablet Extended Release 24 Hr
25 mg PO QPM
insulin aspart U-100 [Novolog FlexPen U-100 Insulin] 100 unit/mL (3 mL) Insulin Pen
0 sliding scale dose SC AC
Creon 36,000-114,000- 180,000 unit Capsule,Delayed Release(Dr/Ec)
1 cap PO BID
multivitamin Tablet
1 tab PO DAILY
cholecalciferol (vitamin D3) [Vitamin D3] 125 mcg (5,000 unit) Tablet
125 mcg PO DAILY
Probiotic 3 billion cell Capsule
3,000 mmu cells PO DAILY
Rx Instructions:
administer with a meal
PreserVision AREDS-2 250-90-40-1 mg Capsule
1 tab PO BID
alendronate 70 mg tablet
70 mg PO WEEKLY
hydroxychloroquine 200 mg tablet
200 mg PO BID
Changed
insulin glargine [Lantus U-100 Insulin] 100 unit/mL Solution
5 unit SC QPM Qty: 0 0RF
Patient Comments:
09/25/2023: Up to [address] First
Discontinued
Eliquis 5 mg Tablet
5 mg PO BID 30 Days Qty: 60 0RF
prednisone 5 mg tablet
15 mg PO DAILY
Discharge Orders:
Discharge Patient (As Directed); Ordered 10/01/23
Ordered By: Ck Boucher
[2023-10-01] MEDS: TOPROL XL 25 MG PO ×2 (11:40→20:22)
--- NOTE | 2023-10-01 11:51 | CM ---
Reviewed the chart notes and spoke with the patient at the bedside. IMM signed and placed on chart. [facility] does not have a bed available. Additional referrals sent via [facility]. CM continues to be available to patient/family and is
monitoring medical plan for needs at discharge.
Plan: Discharge to SNF once bed found and precert will be required.
[2023-10-01 12:02] LABS: Magnesium 1.7 mg/dl (1.6-2.3)
[2023-10-01 12:19] VITALS: BP 123/74
--- NOTE | 2023-10-01 12:52 | CON.CAR ---
Addendum entered and electronically signed by Anthony Car MD 10/01/23 14:21:
83 yo female with PMH of paroxysmal A fib on eliquis, RBBB, PPM. Admitted following orthopedic surgery. We are consulted for abnormal telemetry, concern for NSVT. Exam with RRR, no murmurs, no edema. Tele: paroxysmal A fib with RRBB. No evidence
of VT.
# Paroxysmal A fib, RBBB. No evidence of VT. No symptoms. Continue Toprol XL and eliquis.
Please call us back with additional questions.
Original Note:
Consultation
Consultation Request
Date/Time Consultation Requested: 10/01/23 11:30a
Date/Time Consultation Performed: 10/01/23 12p
Requesting Provider: Dr. Boucher
Performing Provider: IRIS Hyatt for Dr. Car
Reason for Consultation: arrhythmia post-op
Medical History
-
Chief Complaint: fall
History of Present Illness:
Ms. Marrero is an 83 yo female, followed by [facility]iology, s/p left atrial myxoma status post excision [facility] 10 years ago with open chest thoracotomy (Dr. Garcia), endometrial CA (s/p EMILY, chemo, radiation 2019), pancreatic CA s/p
Whipple procedure, Bifascicular block, pacemaker, T2DM, HTN, HLD, depression, anxiety, s/p L TKA, L hip fracture s/p ORIF, and s/p R TKA 04/30/22, who presents from home after a mechanical fall injuring her right hip. She is admitted to the
hospitalist service and is s/p right BETTY by ortho yesterday. Post-op she had intermittent bursts of rapid Afib, therefore we are consulted. She denies any cardiac symptoms and was unaware of her heart rate being elevated earlier today. She is on
Eliquis 2.5mg BID, which is continued.
Past Medical History
Past Medical History: Other (as above)
Past Surgical History: Cardiac (pacemaker)
Social History
Tobacco: Non-Smoker
Alcohol: None
Living: Alone
Family History
Family History: Reviewed & Not Pertinent
Allergies / Home Medications
Allergy/AdvReac Type Severity Reaction Status Date / Time
hydromorphone [From Dilaudid] AdvReac Severe Delirium Verified 09/29/23 10:20
Medication Instructions Recorded Confirmed Type
atorvastatin 20 mg tablet 20 mg PO QPM High cholesterol 04/02/22 09/25/23 History
cholecalciferol (vitamin D3) 125 125 mcg PO DAILY Supplement 04/02/22 09/25/23 History
mcg (5,000 unit) tablet (Vitamin
D3)
insulin aspart U-100 100 unit/mL 0 sliding scale dose SC AC Diabetes 04/02/22 04/29/22 History
(3 mL) subcutaneous pen (Novolog
FlexPen U-100 Insulin aspart)
lactobacillus combination no.4 3 3,000 mmu cells PO DAILY 04/02/22 09/25/23 History
billion cell capsule (Probiotic) Gastrointestinal issue
xhfgdm-ayxltsec-tadezqq 1 cap PO BID Gastrointestinal issue 04/02/22 09/25/23 History
36,000-114,000-180,000 unit
capsule,delay rel (Creon)
metoprolol succinate 25 mg 25 mg PO QPM Blood pressure 04/02/22 09/25/23 History
tablet,extended release 24 hr
multivitamin 1 tab PO DAILY Supplement 04/02/22 09/25/23 History
omeprazole 20 mg capsule,delayed 20 mg PO DAILY Gastrointestinal 04/02/22 09/25/23 History
release issue
sertraline 100 mg tablet 100 mg PO DAILY Mental Health 04/02/22 09/25/23 History
vit C 250 mg-vit E 90 mg-zinc 40 1 tab PO BID Supplement 04/02/22 09/25/23 History
mg-copper 1 [id number]-ciobuq-[id number]
capsule (PreserVision AREDS-2)
alendronate 70 mg tablet 70 mg PO WEEKLY osteoporosis 09/25/23 09/25/23 History
hydroxychloroquine 200 mg tablet 200 mg PO BID Autoimmune Disorder 09/25/23 09/25/23 History
apixaban 2.5 mg tablet (Eliquis) 2.5 mg PO BID #0 tabs 10/01/23 Rx
calcium carbonate 500 mg-vitamin 1 tab PO DAILY Supplement #14 tabs 10/01/23 Rx
D3 5 mcg (200 unit) tablet (Oyster
Shell Calcium-Vitamin D3)
dicyclomine 10 mg capsule 10 mg PO QIDPRN PRN abd pain #0 10/01/23 Rx
caps
docusate sodium 100 mg capsule 100 mg PO BID #0 caps 10/01/23 Rx
insulin glargine 100 unit/mL 5 unit (0.05 mL) SC QPM Diabetes 10/01/23 04/29/22 Rx
subcutaneous solution (Lantus #0 mL
U-100 Insulin)
oxycodone 5 mg tablet 5 mg PO Q4HPRN PRN mild-moderate 10/01/23 Rx
pain #20 tabs
polyethylene glycol 3350 17 gram 17 g PO DAILY #0 ea 10/01/23 Rx
oral powder packet (HealthyLax)
prednisone 5 mg tablet 7.5 mg PO DAILY #0 tabs 10/01/23 Rx
Review of Systems
-
History Source: Patient
All other systems: Negative unless noted
Physical Exam
Vital Signs
Temp Pulse Resp BP Pulse Ox
98.8 F 90 20 123/74 96
10/01/23 12:19 10/01/23 12:19 10/01/23 12:19 10/01/23 12:19 10/01/23 12:19
Lab Results
10/01/23 04:48
10/01/23 04:48
Physical Exam
General: Well Developed and No Apparent Distress
HEENT: Normocephalic, Anicteric and Moist Mucous Membranes
Respiratory: Clear
Cardiac: S1/S2 and Regular Rhythm
Breast: Deferred by me
GI: Soft, Non Distended and Normal Bowel Sounds
Rectal: Deferred by Provider
Genito-urinary: No Costovertebral Tender
Musculoskeletal: No Clubbing, No Cyanosis and No Edema
Skin: Warm and Dry
Neuro: AO x 3
Psych: Calm
Impression / Plan
-
Afib - intermittent rapid rates.
- acute post-op.
- asymptomatic.
- continue Toprol and monitor.
- continue Eliquis 2.5mg BID.
- currently in SR with occasional PACs and A paced rhythm.
HTN - stable on medical therapy, continue.
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
- stable.
H/o of Malignancy - Pancreatic CA and Endometrial CA
- s/p surgery, chemo and radiation.
- follows with oncology.
Fall - right hip fracture s/p surgery by ortho 09/29/23.
- pain management per ortho.
- Eliquis 2.5mg BID.
- PT/OT.
PPM - stable with normal function.
- continue f/u with [facility].
Data Reviewed
-
EKG: Tracing Personally Visualized and interpreted (today, NSR with PACs)
Radiology: Report Reviewed by me
Labs: Labs Reviewed by me
Old Records: Reviewed
[2023-10-01 12:53] LABS: Glucose - Point of Care 151 mg/dl (70-99)
--- NOTE | 2023-10-01 14:25 | PTCARENOTE ---
Patient became tachycardic in the 140-150's this around 1045 this am when getting up to the commode and chair. At rest patient was 90-110. Patient asymptomatic. Dr. Boucher made aware. Toprol XL 25 mg given as ordered. Cardiology consulted.
Patient was still ok for discharge. This afternoon, while working with OT, patient had small amount of bright red blood in stool and per rectum. Patient is not aware of having hemorrhoids and denies having them in the past. Dr. Boucher made aware.
Discharge postponed till tomorrow. CBC to be repeated in AM.
[2023-10-01 16:38] VITALS: BP 138/61
[2023-10-01 16:42] LABS: Glucose - Point of Care 92 mg/dl (70-99)
[2023-10-01] MEDS: NOVOLOG FLEXPEN-MODERATE RESISTANCE SC (16:44)
[2023-10-01] MEDS: LIPITOR 20 MG PO (17:34)
[2023-10-01 19:35] VITALS: BP 133/70
[2023-10-01 22:07] LABS: Glucose - Point of Care 141 mg/dl (70-99)
[2023-10-01] MEDS: LANTUS 0.149999999999999994 UNITS SC (23:16)
[2023-10-01 23:38] VITALS: BP 129/63
[2023-10-02] MEDS: TYLENOL PO ×2 (00:15→04:02)
[2023-10-02 03:49] VITALS: BP 135/64
[2023-10-02] MEDS: ROXICODONE 10 MG PO ×2 (05:37→15:41)
[2023-10-02 06:09] LABS: Hematocrit 30.4 % (37.0-47.0); Mean Corp Hgb Conc. 32.9 g/dL (33.0-37.0); Mean Corpuscular Hgb 28.9 pg (27.0-31.0); Mean Corpuscular Volume 87.9 fL (81.0-99.0); Mean Platelet Volume 10.4 fL (7.4-10.4); Platelet Count 169 10^3/uL (130-400); Red Blood Cell Count 3.46 10^6/uL (4.20-5.40); White Blood Cell Count 6.1 10^3/uL (4.8-10.8)
[2023-10-02 07:22] VITALS: BP 114/53
--- NOTE | 2023-10-02 07:42 | W.PN.HOSP.TC ---
Today's Communication/Plan
-
No bed available and requested rehab centers of discharge canceled yesterday
Will add antispasmodic for pain
More aggressive treatment of constipation to avoid straining and bleeding from hemorrhoid
Hemodynamically stable remained stable for discharge
Assessment / Plan
Assessment / Plan
83-year-old female with past medical history of atrial myxoma status post resection, paroxysmal atrial fibrillation on Eliquis, hypertension, hyperlipidemia, and diabetes presents with right hip pain status post fall.� Patient reports that she
slipped, and fell at her friend's house after midnight.� She was found to have impacted fracture of the femoral neck into the head of the proximal right femur.
#Closed impacted fracture of right femoral neck/now post right total hip arthroplasty
#Mechanical fal
-Activity postop as per surgical recommendations
Tylenol and oxycodone for pain, bowel regimen
PT/OT consult after surgery
-Based on the Fritz perioperative noncardiac risk assessment she has a an estimated risk of probability of perioperative MD or cardiac arrest of 0.42%/ low risk
-Will document adverse reaction to hydromorphone as a possible cause of delirium from previous joint surgery and this will be avoided.
-
#Fever/now resolved
Patient febrile with temp of 100.4/no afebrile x 24 hours
-Chest x-ray did show questionable basilar infiltrate right/
-Will check procalcitonin today if normal would not place on antibiotic
No leukocytosis
Check lower extremity Dopplers to evaluate for DVT was negative for thrombus
, urine analysis no signs of infection, influenza/COVID both negative, blood cultures x 2(no growth to date)
#Uncontrolled type 2 diabetes/in relation to also concomitant low-dose steroid usage for RA
Patient does not know her insulin dosages
Hemoglobin A1c uncontrolled at 11.2, she admits to not being compliant with diet
Start NovoLog 4 units AC 3 times daily, Lantus 15 units at bedtime
Sliding scale insulin, diabetic diet
-In the postop setting we will taper her low-dose prednisone is only contributing to her hyperglycemia
-With continued hyperglycemia and lack of effect per patient of 15 mg dosage of prednisone will reduce to 7.5/already showing improvement
# Paroxysmal atrial fibrillation
Holding Eliquis for surgery/postop placed on dosage of 2.5 mg twice daily based on weight and age
Continue metoprolol
#Hypokalemia
Repleted and resolved, Mg normal
#Rheumatoid arthritis
Continue hydroxychloroquine, prednisone 15 mg daily>> 7.5
#HLD
Continue Atorvastatin
#Anxiety/Depression
Continue Sertraline
DVT prophylaxis�subcu heparin (hold 2/7 am for surg)
Full code
Total time spent to see the patient on the floor, examine the patient, review data and lab results, discuss treatment plan with patient, nursing staff around 51 minutes.
Physical Exam
General: Frail, elderly, no acute distress
HEENT: Normocephalic, Atraumatic, EOMI, MMM
Respiratory: Clear to Auscultation bilaterally
Cardiac: Normal S1/S2, Regular Rate and Rhythm
GI: Soft, Nontender, Nondistended, Normal Bowel Sounds
Musculoskeletal: Right leg mildly shortened and externally rotated
Anticipated Discharge: Within 24 hours
Subjective/Interval History
-
Date of Service: October 02, 2023
Complaining of pain that radiates from her hip down to her knee into her ankle states 'I used gabapentin before but did not work' so having some constipation.
Objective Data
-
Labs:
Laboratory Results
10/02/23
05:53
WBC 6.1
Hgb 10.0 L
Hct 30.4 L
Plt Count 169 D
Vital Signs:
Vital Signs
Temp Pulse Resp BP Pulse Ox
98.5 F 63 17 135/64 97
10/02/23 03:49 10/02/23 03:49 10/02/23 03:49 10/02/23 03:49 10/02/23 03:49
I&O
10/01/23 10/02/23 10/03/23
06:59 06:59 06:59
Intake Total 700 / 700 1200 / 1200
Output Total 400 / 400
Balance 700 / 700 800 / 800
Review of Systems
-
History Source: Patient
EENT: Reports No Symptoms Reported
Respiratory: Reports No Symptoms
Cardiac: Reports No Symptoms
Abdomen/GI: Reports Constipated
Musculoskeletal: Reports Arthralgias and Myalgias
Physical Exam
-
General: Well Developed
HEENT: Normocephalic
Respiratory: Clear to Auscultation
Cardiac: Irregular Rhythm
GI: Soft and Nontender
Neuro: Awake, Alert, Oriented and AO x 3
Psych: Calm
Data Reviewed
-
Labs: Labs Reviewed by me (Hemoglobin still trending up to 10.0/white count normal/blood sugar 141)
[2023-10-02 07:54] LABS: Glucose - Point of Care 119 mg/dl (70-99)
[2023-10-02] MEDS: NOVOLOG FLEXPEN-MODERATE RESISTANCE SC ×2 (09:05→12:06)
[2023-10-02] MEDS: ZANAFLEX 2 MG PO (09:06)
[2023-10-02] MEDS: ZOLOFT 100 MG PO (09:06)
[2023-10-02] MEDS: COLACE 100 MG PO (09:06)
[2023-10-02] MEDS: OSCAL 500 + D 500 MG PO (09:06)
[2023-10-02] MEDS: TYLENOL 650 MG PO ×3 (09:06→15:42)
[2023-10-02] MEDS: SENOKOT 17.1999999999999993 MG PO (09:06)
[2023-10-02] MEDS: PLAQUENIL 200 MG PO (09:07)
[2023-10-02] MEDS: ELIQUIS 2.5 MG PO (09:15)
[2023-10-02] MEDS: MIRALAX 17 GRAMS PO (09:15)
[2023-10-02] MEDS: OCUVITE SOFTGEL 1 CAP PO (09:16)
[2023-10-02] MEDS: ZENPEP DELAYED RELEASE CAPSULE 1 CAPSULE PO (09:16)
[2023-10-02] MEDS: DELTASONE 7.5 MG PO (09:17)
[2023-10-02] MEDS: TOPROL XL 25 MG PO (09:19)
[2023-10-02] MEDS: NOVOLOG FLEXPEN 6 UNITS SC ×3 (09:20→16:18)
[2023-10-02 11:35] LABS: Glucose - Point of Care 135 mg/dl (70-99)
[2023-10-02 12:02] VITALS: BP 101/52
[2023-10-02 13:03] VITALS: BP 95/52; PULSE 60; O2SAT 90
--- NOTE | 2023-10-02 14:30 | CM ---
Pt accepted to [facility]
Auth # [id number]
10/02-Next Review 10/06
Call Review to [phone] opt 5
Ambulance Auth- Acute Care
[id number]
Start 10/02- Good for 7days
[2023-10-02 16:10] LABS: Glucose - Point of Care 356 mg/dl (70-99)
[2023-10-02] MEDS: NOVOLOG FLEXPEN-MODERATE RESISTANCE 9 UNITS SC (16:18)
[2023-10-02] MEDS: LIPITOR 20 MG PO (17:04)
--- NOTE | 2023-10-03 08:37 | CM ---
Daughter, Katelin called this am to complain about the SNF that her mother was discharged to. Specifically that therapy had not yet assessed her mother and she was told she was not able to get out of bed until they did so. CM provided phone numbers
for [facility] in [facility] and patient daughter has discussed with [facility] at the facility already.
== END 2023-10-02 18:30 | DRG 522 ==
LOC: 2 SOUTH 13:52
PROVIDERS: Nurse Practitioner; Orthopaedic Surgery; ADMITTING PHYSICIAN Family Medicine; ATTENDING PHYSICIAN Internal Medicine; CONSULT PHYSICIAN Internal Medicine; CONSULT PHYSICIAN Orthopaedic Surgery; EMERGENCY PHYSICIAN Emergency Medicine; FAMILY PHYSICIAN Family Medicine Sports Medicine
PROC: 0SR9049 Replacement of Right Hip Joint with Ceramic on Polyethylene Synthetic Substitute, Cemented, Open Approach (ICD-10-PCS; 2023-09-29)
DX: S72.091A Other fracture of head and neck of right femur, initial encounter for closed fracture (principal); I48.0 Paroxysmal atrial fibrillation; I10 Essential (primary) hypertension; E78.00 Pure hypercholesterolemia, unspecified; S50.01XA Contusion of right elbow, initial encounter; W01.0XXA Fall on same level from slipping, tripping and stumbling without subsequent striking against object, initial encounter; E11.65 Type 2 diabetes mellitus with hyperglycemia; K21.9 Gastro-esophageal reflux disease without esophagitis; M79.7 Fibromyalgia; D64.9 Anemia, unspecified; I89.0 Lymphedema, not elsewhere classified; E87.6 Hypokalemia; F41.9 Anxiety disorder, unspecified; F32.A Depression, unspecified; M06.9 Rheumatoid arthritis, unspecified; I45.10 Unspecified right bundle-branch block; M81.0 Age-related osteoporosis without current pathological fracture; R50.82 Postprocedural fever; Z11.52 Encounter for screening for COVID-19; T38.0X5A Adverse effect of glucocorticoids and synthetic analogues, initial encounter; Z79.01 Long term (current) use of anticoagulants; Z79.4 Long term (current) use of insulin; Z79.52 Long term (current) use of systemic steroids; Z79.899 Other long term (current) drug therapy; Z85.07 Personal history of malignant neoplasm of pancreas; Z85.42 Personal history of malignant neoplasm of other parts of uterus; Z86.718 Personal history of other venous thrombosis and embolism; Z90.710 Acquired absence of both cervix and uterus; Z92.21 Personal history of antineoplastic chemotherapy; Z92.3 Personal history of irradiation; Z95.0 Presence of cardiac pacemaker; Z96.653 Presence of artificial knee joint, bilateral
CPT/HCPCS: 71045; 72192; 73502; 73552; 80048; 81003; 82040; 82947; 82962; 83036; 83735; 84145; 85025; 85027; 86850; 86900; 86901; 87040; 87502; 87811; 93005; 93970; 96374; 96375; 97116; 97162; 97166; 97530; 97535; 99285; C1713; C1776